=== PATIENT | female | born 1930 | race Caucasian/White ===

== ENCOUNTER → 2016-04-17 | Outpatient (CLI) | payer OTHER ==
[~2016-04-17] MED LIST: ACET-1311 PO; ASPI81TA28 PO; ATEN-174 PO; ATOR-24 PEG; ATOR-54 PO; BISA10SU3 PR; BISA10SU5 PR; CHOL20005 PO; CLEAR LAX PEG; CMD4 PO; DICL1GEL12; ERGO500037 PEG; IMD/2 PO; MCRK/10 PO; MOML PO; MULT-411 PO; PANT40TA PO; POLY150C PEG; POLY150C4 PO; POTA-335 PEG; PRNJ PO; PROT1POW PO; RANI150T3 PO; SACC250C PO; SODIENE PR; TCMD2 PO; XRL10 PO
== END | disposition home or self-care (01) ==
LOC: C.LABCC 08:16
PROVIDERS: ATTEND Internal Medicine
DX: N83.202 Unspecified ovarian cyst, left side (principal)

== ENCOUNTER → 2016-04-18 | Outpatient (CLI) | payer OTHER ==
[2016-04-18 08:43] LABS: PROTHROMBIN TIME (PATIENT) 11.2 SECONDS (9.0-12.0)
== END ==
LOC: C.LABCC 08:04
PROVIDERS: ATTEND Internal Medicine
DX: I48.91 Unspecified atrial fibrillation (principal)

== ENCOUNTER → 2016-04-25 | Outpatient (CLI) | payer OTHER ==
[2016-04-25 09:04] LABS: INR 1.4 (0.9-1.1); PROTHROMBIN TIME (PATIENT) 15.6 SECONDS (9.0-12.0)
== END ==
LOC: C.LABCC 08:28
PROVIDERS: ATTEND Internal Medicine
DX: I48.91 Unspecified atrial fibrillation (principal)

== ENCOUNTER → 2016-05-02 | Outpatient (CLI) | payer OTHER ==
[2016-05-02 08:42] LABS: INR 2.5 (0.9-1.1); PROTHROMBIN TIME (PATIENT) 27.4 SECONDS (9.0-12.0)
== END ==
LOC: C.LABCC 08:10
PROVIDERS: ATTEND Internal Medicine
DX: I48.91 Unspecified atrial fibrillation (principal)

== ENCOUNTER → 2016-05-10 | Outpatient (CLI) | payer OTHER ==
[2016-05-10 10:41] LABS: PROTHROMBIN TIME (PATIENT) 52.9 SECONDS (9.0-12.0)
[2016-05-10 10:45] LABS: INR 4.6 (0.9-1.1)
== END | disposition home or self-care (01) ==
LOC: C.LABCC 09:26
PROVIDERS: ATTEND Internal Medicine
DX: I48.91 Unspecified atrial fibrillation (principal)

== ENCOUNTER → 2016-05-12 | Outpatient (CLI) | payer OTHER ==
[2016-05-12 08:49] LABS: PROTHROMBIN TIME (PATIENT) 58.5 SECONDS (9.0-12.0)
[2016-05-12 09:19] LABS: INR 5.1 (0.9-1.1)
== END ==
LOC: C.LABCC 08:15
PROVIDERS: ATTEND Internal Medicine
DX: I48.91 Unspecified atrial fibrillation (principal)

== ENCOUNTER → 2016-05-14 | Outpatient (CLI) | payer OTHER ==
[2016-05-14 07:46] LABS: INR 2.7 (0.9-1.1); PROTHROMBIN TIME (PATIENT) 30.4 SECONDS (9.0-12.0)
== END ==
LOC: C.LABCC 12:15
PROVIDERS: ATTEND Internal Medicine
DX: I48.91 Unspecified atrial fibrillation (principal)

== ENCOUNTER → 2016-05-22 | Outpatient (CLI) | payer OTHER ==
[2016-05-22 09:37] LABS: INR 1.1 (0.9-1.1); PROTHROMBIN TIME (PATIENT) 11.3 SECONDS (9.0-12.0)
== END ==
LOC: C.LABCC 09:07
PROVIDERS: ATTEND Internal Medicine
DX: I48.91 Unspecified atrial fibrillation (principal)

== ENCOUNTER → 2016-05-29 | Outpatient (CLI) | payer OTHER ==
[2016-05-29 08:49] LABS: PROTHROMBIN TIME (PATIENT) 21.5 SECONDS (9.0-12.0)
== END ==
LOC: C.LABCC 08:16
PROVIDERS: ATTEND Internal Medicine
DX: I48.91 Unspecified atrial fibrillation (principal)

== ENCOUNTER → 2016-06-02 | Outpatient (CLI) | payer OTHER ==
[2016-06-02 08:21] LABS: BASO % 0.6 %; BASO ABS # 0.03 K/uL (0-0.2); COMPLETE YES; EOS % 2.4 %; HEMATOCRIT 34.5 % (37-47); IG% 0.2 %; LYMPH % 21.7 %; LYMPH ABS # 1.07 K/uL (1.2-3.4); MEAN CORPUSCULAR HEMOGLOBIN 29.3 pg (25-34); MEAN CORPUSCULAR HGB CONC 33.3 g/dl (32-36); MEAN PLATELET VOLUME 10.3 fL (7.4-10.4); MONO % 7.9 %; NEUT % 67.2 %; PLATELET COUNT 212 K/uL (130-400); RED BLOOD COUNT 3.92 M/uL (4.2-5.4); WHITE BLOOD COUNT 4.92 K/uL (4.8-10.8)
[2016-06-02 08:30] LABS: ALT/SGPT 22 U/L (12-78); AST/SGOT 19 U/L (15-37); BLOOD UREA NITROGEN 8 mg/dl (7-18); BUN/CREATININE RATIO 10.7 (10-20); CALCIUM 8.4 mg/dl (8.5-10.1); CARBON DIOXIDE 29 mmol/L (21-32); CHLORIDE 97 mmol/L (98-107); CHOLESTEROL 104 mg/dl (0-200); CREATININE 0.76 mg/dl (0.60-1.20); GLUCOSE 96 mg/dl (70-99); POTASSIUM 4.5 mmol/L (3.5-5.1); SODIUM 132 mmol/L (136-145); TRIGLYCERIDES 89 mg/dl (0-150); VERY LOW DENSITY LIPOPROT CALC 18 mg/dl
[2016-06-02 08:33] LABS: ALB/GLOB RATIO 0.9 (0.9-2); ALKALINE PHOSPHATASE 100 U/L (45-117); CHOLESTEROL/HDL RATIO 2.2; HDL CHOLESTEROL 47 mg/dl; LDL CHOLESTEROL CALCULATED 39 mg/dl
[2016-06-02 10:00] LABS: ESTIMATED AVERAGE GLUCOSE 108 mg/dl; HA1C FLAG Normal (Normal)
== END ==
LOC: C.LABCC 08:05
PROVIDERS: ATTEND Internal Medicine
DX: I10 Essential (primary) hypertension (principal); E78.5 Hyperlipidemia, unspecified; R73.01 Impaired fasting glucose

== ENCOUNTER → 2016-06-06 | Outpatient (CLI) | payer OTHER ==
[2016-06-06 08:38] LABS: BLOOD UREA NITROGEN 12 mg/dl (7-18); BUN/CREATININE RATIO 15.3 (10-20); CALCIUM 8.8 mg/dl (8.5-10.1); CARBON DIOXIDE 29 mmol/L (21-32); CHLORIDE 97 mmol/L (98-107); CREATININE 0.81 mg/dl (0.60-1.20); GLUCOSE 96 mg/dl (70-99); POTASSIUM 4.6 mmol/L (3.5-5.1); SODIUM 133 mmol/L (136-145)
[2016-06-06 08:41] LABS: INR 2.5 (0.9-1.1); PROTHROMBIN TIME (PATIENT) 27.6 SECONDS (9.0-12.0)
== END | disposition home or self-care (01) ==
LOC: C.LABCC 08:16
PROVIDERS: ATTEND Internal Medicine
DX: I48.91 Unspecified atrial fibrillation (principal)

== ENCOUNTER → 2016-06-16 | Outpatient (CLI) | payer OTHER ==
[2016-06-16 17:25] LABS: URINE APPEARANCE CLOUDY (CLEAR); URINE BILIRUBIN NEG (NEG); URINE COLOR YELLOW; URINE EPITHELIAL CELL AUTO 0-5 /lpf (0-5); URINE NITRITE POS (NEG); URINE PH 7.5 (4.5-7.5); UROBILINOGEN NEG (NEG)
[2016-06-16 17:39] LABS: MANUAL MICROSCOPIC REQUIRED? NO; REVIEW REQ? NO
== END | disposition home or self-care (01) ==
LOC: C.LABCC 16:38
PROVIDERS: ATTEND Internal Medicine
DX: R41.82 Altered mental status, unspecified (principal)

== ENCOUNTER → 2016-06-21 | Outpatient (CLI) | payer OTHER ==
[2016-06-21 09:40] LABS: PROTHROMBIN TIME (PATIENT) 21.7 SECONDS (9.0-12.0)
[2016-06-21 09:44] LABS: BLOOD UREA NITROGEN 12 mg/dl (7-18); BUN/CREATININE RATIO 14.1 (10-20); CALCIUM 8.6 mg/dl (8.5-10.1); CARBON DIOXIDE 30 mmol/L (21-32); CHLORIDE 98 mmol/L (98-107); CREATININE 0.86 mg/dl (0.60-1.20); GLUCOSE 97 mg/dl (70-99); POTASSIUM 4.3 mmol/L (3.5-5.1); SODIUM 134 mmol/L (136-145)
== END ==
LOC: C.LABCC 08:36
PROVIDERS: ATTEND Internal Medicine
DX: I48.91 Unspecified atrial fibrillation (principal); E87.1 Hypo-osmolality and hyponatremia

== ENCOUNTER → 2016-06-27 | Outpatient (CLI) | payer OTHER ==
[2016-06-27 08:48] LABS: INR 2.2 (0.9-1.1); PROTHROMBIN TIME (PATIENT) 24.4 SECONDS (9.0-12.0)
== END ==
LOC: C.LABCC 08:14
PROVIDERS: ATTEND Internal Medicine
DX: I48.91 Unspecified atrial fibrillation (principal)

== ENCOUNTER → 2016-07-01 | Outpatient (CLI) | payer OTHER ==
--- NOTE | 2016-07-04 11:26 | CODING QUERY NO DIAGNOSIS ---
TREATMENT RENDERED WITHOUT A DIAGNOSIS To promote full compliance with coding requirements relating to patient care, physician participation is requested in all cases of trimmer sorter uncertainty. Please assist us with providing a diagnosis/symptom for the test(s) below: A diagnosis/symptom was not documented on your Order. A valid diagnosis/symptom is required to bill all insurances. Please remember that we are unable to code a diagnosis of rule out, probable, possible, questionable, or suspected. Tests that require a diagnosis: * CDIFF TOXIN B GENE DIAGNOSIS: Provider Signature: Date: Thank you Mia Stockwell [employer] Once completed, please kindly fax back to [phone] For questions please call [phone]
== END ==
LOC: C.LABCC 11:11
PROVIDERS: ATTEND Internal Medicine
DX: R19.7 Diarrhea, unspecified (principal); R19.5 Other fecal abnormalities

== ENCOUNTER → 2016-07-03 | Outpatient (CLI) | payer OTHER ==
[2016-07-03 10:14] LABS: INR 1.9 (0.9-1.1); PROTHROMBIN TIME (PATIENT) 20.8 SECONDS (9.0-12.0)
== END ==
LOC: C.LABCC 09:35
PROVIDERS: ATTEND Internal Medicine
DX: I48.91 Unspecified atrial fibrillation (principal)

== ENCOUNTER → 2016-07-11 | Outpatient (CLI) | payer OTHER ==
[2016-07-11 09:14] LABS: PROTHROMBIN TIME (PATIENT) 42.3 SECONDS (9.0-12.0)
[2016-07-11 09:16] LABS: INR 3.7 (0.9-1.1)
== END ==
LOC: C.LABCC 08:40
PROVIDERS: ATTEND Internal Medicine
DX: I48.91 Unspecified atrial fibrillation (principal)

== ENCOUNTER 2016-07-16 09:11 | Inpatient (IN) | payer OTHER ==
[~2016-07-16] VITALS: Ht 157.5 cm; Wt 81.4 kg
[~2016-07-16 09:11] MED LIST changes: -ACET-1311 PO; -ATOR-54 PO; -BISA10SU3 PR; -CHOL20005 PO; -CMD4 PO; -DICL1GEL12; -IMD/2 PO; -MCRK/10 PO; -MULT-411 PO; -POLY150C4 PO; -PRNJ PO; -PROT1POW PO; -RANI150T3 PO; -SODIENE PR; -TCMD2 PO
[2016-07-16] MEDS ORDERED: SODIUM CHLORIDE 0.9% 1000ML 1,000 ML IV ONE (09:45)
--- NOTE | 2016-07-16 09:54 | EMERGENCY ROOM VISIT NOTE ---
History Report prepared by Veronica: Renard Chaudhry Under the Supervision of: Dr. Tr Ferreira M.D. First contact with patient: 09:36 Chief Complaint: OVERDOSE (ACCIDENTAL) Stated Complaint: OVERDOSE (ACCIDENTAL) Nursing Triage Summary: Pt resident of [facility], found this a.m. by staff with an altered mental status and foaming at the mouth. Pt not acting her normal self per staff. BSG 129 and BP 78/58 for [facility]. On staff questioning the pt, pt told the staff that she got a medicine shot during the night. The patient normally only takes protonix. prehospital BSG 141. [place]on Officer Damon Hilton on scene. It is assumed that she was given the pts roommates meds: BuSpar 10 mg, Norvasc 10 mg, Calcium, Neurontin 300 mg, Hydralazine 50 mg, Levimer 25 units, Imdur 60 mg, Ativan 0.5 mg, Seroquel 25 mg. pt is normally alert. Pt now opens eyes upon calling out her name, pt will answer questions of name and knows she is at the hospital and states Vargas is the President. History of Present Illness The patient is an 85 year old female who presents to the Emergency Room after being found altered and foaming at the mouth in her bed at [facility] prior to arrival at the ED. The patient told the staff this morning that she was given pills and shots last night by a nurse. However, the patient is only supposed to get Protonix. It is assumed that the agency nurse at [facility] gave the patient her roommate's medications which include BuSpar 10 mg, Norvasc 10 mg, Calcium, Neurontin 300 mg, Hydralazine 50 mg, Levimer 25 units, Imdur 60 mg, Ativan 0.5 mg, and Seroquel 25 mg. Per nursing staff, the patient is usually alert and not altered. At [facility], her blood sugar was 129. Upon arrival at the ED, her blood sugar is now 141. The patient's HPI is limited due to AMS. Source of History: patient, fpc notes, nursing staff History Limited By: AMS Onset: prior to arrival Position: other (global) Review of Systems The patient's ROS is limited due to AMS. Past Medical & Surgical Medical Problems: (1) Atrial Fibrillation (2) Cholelithiasis Nos (3) Hyperlipidemia Nec/Nos (4) Hypertension Nos (5) Osteoporosis Nos (6) Overdose Family History Omitted due to advanced age Social History Smoking Status: Never Smoker Drug Use: none Marital Status: Housing Status: fpc Occupation Status: retired Current/Historical Medications Scheduled Aspirin (Aspirin Ec), 81 MG PO DAILY Atenolol (Tenormin), 50 MG PO BID Atorvastatin (Lipitor), 20 MG PO HS Cholecalciferol (Vitamin D3), 2,000 UNITS PO DAILY Magnesium Hydroxide (Milk Of Magnesia), 30 ML PO UD Multiple Vitamin (Daily Rigoberto), 1 TAB PO DAILY Pantoprazole (Protonix), 40 MG PO BID Polysaccharide Iron Complex (Ferrex 150), 150 MG PO DAILY Potassium Chloride (K-Tabs), 20 MEQ PO QAM Protein (Protein), 30 ML PO BID Warfarin Sod (Coumadin), 2 MG PO Q2D Warfarin Sod (Coumadin), 4 MG PO Q2D Scheduled PRN Acetaminophen (Tylenol), 650 MG PO Q8 PRN for Pain Bisacodyl (Dulcolax), 1 SUPP TX for Constipation Loperamide Hcl (Imodium), 2 MG PO for Diarrhea Prune Juice (Prune Juice ), 8 OZ PO for Constipation Ranitidine Hcl (Zantac), 150 MG PO BID PRN for Heartburn Sodium Phosphate/Biphosphate (Fleet Enema), 1 EA TX DAILY PRN for Constipation Miscellaneous Medications Diclofenac Sodium (Topical) (Voltaren 1% Top Gel) Allergies Coded Allergies: Morphine (Verified Allergy, Unknown, 07/16/16) Sulfa Antibiotics (Verified Allergy, Unknown, UNKNOWN, 07/16/16) Physical Exam Vital Signs Date Time Temp Pulse Resp B/P Pulse Ox O2 Delivery O2 Flow Rate FiO2 07/16/16 12:10 67 18 103/60 94 Room Air 07/16/16 11:08 65 14 102/55 95 07/16/16 10:30 72 18 106/43 94 Room Air 07/16/16 10:20 93 Room Air 07/16/16 10:09 67 16 93/54 94 Room Air 07/16/16 09:53 68 18 82/47 92 Room Air 07/16/16 09:41 64 07/16/16 09:18 36.4 79 18 107/53 94 Room Air Physical Exam GENERAL: Patient was asleep on my arrival, but was able to answer some questions. Appears confused and disoriented. SKIN: No erythema, pallor, cyanosis or rash HEENT: Normal head, pupils equal, reactive to light and accommodation. Oral cavity and posterior pharynx appear normal. Neck: Without adenopathy, no neck vein distention. LUNGS: Clear to auscultation. No wheezes, no rales, no rhonchi. HEART: No murmurs. No gallops. No rubs ABDOMEN: No masses, no rebound, no hepatomegaly or splenomegaly. EXTREMITIES: No signs of trauma. No pedal or pretibial edema. No calf or thigh tenderness. NEUROLOGIC: Cranial nerves II-XII within normal limits. No gross motor sensory function deficits. Medical Decision & Procedures ER Provider Diagnostic Interpretation: X ray results are stated below per my interpretation and the radiologist's interpretation. CHEST ONE VIEW PORTABLE CLINICAL HISTORY: Overdose. COMPARISON STUDY: Chest radiograph September 28, 2014. FINDINGS: Moderate cardiomegaly is unchanged. There is no pneumothorax or pleural effusion. Blunting of left costophrenic angle is likely due to atelectasis or epicardial fat pad. There is extensive mitral annular calcification. There is no evidence of pulmonary edema. No consolidation is identified. Old deformity of the right upper chest wall and right clavicle is noted. IMPRESSION: No acute cardiopulmonary findings. No change in appearance of the chest. Electronically signed by: Catarino Butler M.D. 07/16/2016 10:13 AM Dictated Date/Time: 07/16/2016 10:11 AM Laboratory Results 07/16/16 09:30 Red Blood Count 4.01, Mean Corpuscular Volume 87.8, Mean Corpuscular Hemoglobin 29.4, Mean Corpuscular Hemoglobin Concent 33.5, Mean Platelet Volume 9.6, Neutrophils (%) (Auto) 75.9, Lymphocytes (%) (Auto) 18.0, Monocytes (%) (Auto) 4.9, Eosinophils (%) (Auto) 0.8, Basophils (%) (Auto) 0.2, Neutrophils # (Auto) 7.29, Lymphocytes # (Auto) 1.73, Monocytes # (Auto) 0.47, Eosinophils # (Auto) 0.08, Basophils # (Auto) 0.02 07/16/16 09:30 Test 07/16/16 09:30 4/9/17 10:05 07/16/16 10:30 White Blood Count 9.61 K/uL (4.8-10.8) Red Blood Count 4.01 M/uL (4.2-5.4) Hemoglobin 11.8 g/dL (12.0-16.0) Hematocrit 35.2 % (37-47) Mean Corpuscular Volume 87.8 fL (80-100) Mean Corpuscular Hemoglobin 29.4 pg (25-34) Mean Corpuscular Hemoglobin Concent 33.5 g/dl (32-36) Platelet Count 291 K/uL (130-400) Mean Platelet Volume 9.6 fL (7.4-10.4) Neutrophils (%) (Auto) 75.9 % Lymphocytes (%) (Auto) 18.0 % Monocytes (%) (Auto) 4.9 % Eosinophils (%) (Auto) 0.8 % Basophils (%) (Auto) 0.2 % Neutrophils # (Auto) 7.29 K/uL (1.4-6.5) Lymphocytes # (Auto) 1.73 K/uL (1.2-3.4) Monocytes # (Auto) 0.47 K/uL (0.11-0.59) Eosinophils # (Auto) 0.08 K/uL (0-0.5) Basophils # (Auto) 0.02 K/uL (0-0.2) RDW Standard Deviation 42.9 fL (36.4-46.3) RDW Coefficient of Variation 13.5 % (11.5-14.5) Immature Granulocyte % (Auto) 0.2 % Immature Granulocyte # (Auto) 0.02 K/uL (0.00-0.02) Prothrombin Time 15.0 SECONDS (9.0-12.0) Prothromb Time International Ratio 1.4 (0.9-1.1) Activated Partial Thromboplast Time 28.7 SECONDS (21.0-31.0) Partial Thromboplastin Ratio 1.1 Anion Gap 10.0 mmol/L (3-11) Estimated GFR () 65.0 Estimated GFR (Non- 56.0 BUN/Creatinine Ratio 16.3 (10-20) Calcium Level 8.7 mg/dl (8.5-10.1) Total Bilirubin 0.8 mg/dl (0.2-1) Aspartate Amino Transf (AST/SGOT) 25 U/L (15-37) Alanine Aminotransferase (ALT/SGPT) 53 U/L (12-78) Alkaline Phosphatase 187 U/L (45-117) Troponin I < 0.015 ng/ml (0-0.045) Total Protein 6.7 gm/dl (6.4-8.2) Albumin 2.9 gm/dl (3.4-5.0) Globulin 3.8 gm/dl (2.5-4.0) Albumin/Globulin Ratio 0.8 (0.9-2) Lactic Acid Level 1.5 mmol/L (0.4-2.0) Urine Color YELLOW Urine Appearance CLEAR (CLEAR) Urine pH 7.5 (4.5-7.5) Urine Specific Cosby 1.010 (1.000-1.030) Urine Protein NEG (NEG) Urine Glucose (UA) NEG (NEG) Urine Ketones NEG (NEG) Urine Occult Blood NEG (NEG) Urine Nitrite NEG (NEG) Urine Bilirubin NEG (NEG) Urine Urobilinogen NEG (NEG) Urine Leukocyte Esterase NEG (NEG) Urine Opiates Screen NEG (NEG) Urine Methadone, Qualitative NEG (NEG) Urine Barbiturates NEG (NEG) Urine Phencyclidine (PCP) Level NEG (NEG) Ur Amphetamine/Methamphetamine NEG (NEG) MDMA (Ecstasy) Screen NEG (NEG) Urine Benzodiazepines Screen NEG (NEG) Urine Cocaine Metabolite NEG (NEG) Urine Marijuana (THC) NEG (NEG) Laboratory results as stated above per my review. Medications Administered Medications (Trade) Dose Ordered Sig/Edi Route Start Time Stop Time Status Last Admin Dose Admin Sodium Chloride 1,000 ml @ 1,000 mls/hr Q1H ONCE IV 07/16/16 09:45 07/16/16 10:44 DC 07/16/16 09:52 1,000 MLS/HR Dextrose/Sodium Chloride (D5W And 1/2nss) 1,000 ml @ 75 mls/hr [id number] IV 07/16/16 12:15 07/17/16 01:34 07/16/16 14:03 75 MLS/HR ECG Indication: altered mental status Rate (beats per minute): 74 Rhythm: atrial fibrillation Findings: nonspecific-ST abn, PVC (occasional), other (LVH) Change: no significant change (when compared to EKG from September 28, 2014. ) ED Course 0941: Past medical records reviewed. The patient was evaluated in room A3. A complete history and physical examination was performed. 0945: Ordered NSS 1000 ml @ 1000 mls/hr IV. 1104: At this time, I reevaluated the patient and she was feeling much better. I discussed findings with the patient and the patient's daughter. 1152: At this time, I discussed the patient's case with Dr. Maxi MEDINA and he agreed to accept the patient for further evaluation. Medical Decision Differential diagnoses include accidental overdose, hypoglycemia, hypotension, or metabolic disorder. The patient apparently received multiple different medications that were not prescribed to her this morning. Multiple labs, urinalysis, EKG and imaging were obtained. Please see above. Patient's mental status improved markedly while here in the ED but despite that and because of the significant medications I do believe she should be monitored in the hospital. I discussed this with family members and with the hospitalist. Consults Time Called: [phone] Consulting Physician: Dr. Maxi MARTI Returned Call: [phone] At this time, I discussed the patient's case with Dr. Maxi MEDINA and he agreed to accept the patient for further evaluation. Impression Primary Impression: Multiple drug overdose Scribe Attestation The scribe's documentation has been prepared under my direction and personally reviewed by me in its entirety. I confirm that the note above accurately reflects all work, treatment, procedures, and medical decision making performed by me. Departure Information Dispostion Being Evaluated By Hospitalist Referrals WoodbineEllen (PCP)
[2016-07-16 10:03] LABS: BASO % 0.2 %; BASO ABS # 0.02 K/uL (0-0.2); COMPLETE YES; EOS % 0.8 %; HEMATOCRIT 35.2 % (37-47); IG% 0.2 %; LYMPH ABS # 1.73 K/uL (1.2-3.4); MEAN CELL VOLUME 87.8 fL (80-100); MEAN CORPUSCULAR HEMOGLOBIN 29.4 pg (25-34); MEAN CORPUSCULAR HGB CONC 33.5 g/dl (32-36); MEAN PLATELET VOLUME 9.6 fL (7.4-10.4); MONO % 4.9 %; NEUT % 75.9 %; PLATELET COUNT 291 K/uL (130-400); RED BLOOD COUNT 4.01 M/uL (4.2-5.4); WHITE BLOOD COUNT 9.61 K/uL (4.8-10.8)
[2016-07-16 10:11] LABS: ALT/SGPT 53 U/L (12-78); BLOOD UREA NITROGEN 15 mg/dl (7-18); BUN/CREATININE RATIO 16.3 (10-20); CALCIUM 8.7 mg/dl (8.5-10.1); CARBON DIOXIDE 30 mmol/L (21-32); CHLORIDE 97 mmol/L (98-107); CREATININE 0.93 mg/dl (0.60-1.20); GLUCOSE 135 mg/dl (70-99); POTASSIUM 4.2 mmol/L (3.5-5.1); SODIUM 137 mmol/L (136-145)
[2016-07-16 10:15] LABS: ALB/GLOB RATIO 0.8 (0.9-2); ALKALINE PHOSPHATASE 187 U/L (45-117); AST/SGOT 25 U/L (15-37)
--- NOTE | 2016-07-16 10:15 | DIAGNOSTIC IMAGING REPORT ---
CHEST ONE VIEW PORTABLE CLINICAL HISTORY: Overdose. COMPARISON STUDY: Chest radiograph September 28, 2014. FINDINGS: Moderate cardiomegaly is unchanged. There is no pneumothorax or pleural effusion. Blunting of left costophrenic angle is likely due to atelectasis or epicardial fat pad. There is extensive mitral annular calcification. There is no evidence of pulmonary edema. No consolidation is identified. Old deformity of the right upper chest wall and right clavicle is noted. IMPRESSION: No acute cardiopulmonary findings. No change in appearance of the chest. Electronically signed by: Catarino Butler M.D. 07/16/2016 10:13 AM Dictated Date/Time: 07/16/2016 10:11 AM
[2016-07-16 10:18] LABS: INR 1.4 (0.9-1.1); PARTIAL THROMBOPLASTIN RATIO 1.1
[2016-07-16] MEDS ORDERED: ATOR-54 PO (10:25)
[2016-07-16] MEDS ORDERED: MCRK/10 PO (10:25)
[2016-07-16] MEDS ORDERED: PRNJ PO (10:25)
[2016-07-16] MEDS ORDERED: MULT-411 PO (10:25)
[2016-07-16] MEDS ORDERED: SODIENE PR (10:25)
[2016-07-16] MEDS ORDERED: POLY150C4 PO (10:25)
[2016-07-16] MEDS ORDERED: PROT1POW PO (10:25)
[2016-07-16] MEDS ORDERED: ACET-1311 PO (10:25)
[2016-07-16] MEDS ORDERED: BISA10SU3 PR (10:25)
[2016-07-16] MEDS ORDERED: DICL1GEL12 (10:25)
[2016-07-16] MEDS ORDERED: CHOL20005 PO (10:25)
[2016-07-16] MEDS ORDERED: IMD/2 PO (10:26)
[2016-07-16] MEDS ORDERED: RANI150T3 PO (10:26)
[2016-07-16] MEDS ORDERED: CMD4 PO (10:28)
[2016-07-16] MEDS ORDERED: TCMD2 PO (10:28)
[2016-07-16 10:59] LABS: URINE APPEARANCE CLEAR (CLEAR); URINE BILIRUBIN NEG (NEG); URINE COLOR YELLOW; URINE NITRITE NEG (NEG); URINE PH 7.5 (4.5-7.5); UROBILINOGEN NEG (NEG); ZZURINE CULT IF INDIC CATH NO
[2016-07-16 11:01] LABS: MANUAL MICROSCOPIC REQUIRED? NO; REVIEW REQ? NO
[2016-07-16 11:36] LABS: BENZODIAZEPINE, URINE NEG (NEG); COCAINE,URINE NEG (NEG); PHENCYCLIDINE, URINE NEG (NEG)
[2016-07-16] MEDS ORDERED: METOPROLOL TARTRATE 1 MG/ML VIAL IV PRN (12:15)
[2016-07-16] MEDS ORDERED: D5NSS + 20MEQ KCL 1,000 ML IV SCH (12:15)
[2016-07-16] MEDS ORDERED: ONDANSETRON INJ 2 MG/ML 2 ML VIAL IV PRN (12:15)
[2016-07-16] MEDS ORDERED: ALUMINUM/MAGNESIUM/SIMETH (MAALOX MAX) 30 ML UDC PO PRN (12:15)
[2016-07-16] MEDS ORDERED: ACETAMINOPHEN 325 MG TAB PO PRN (12:15)
[2016-07-16] MEDS ORDERED: D5W AND 1/2NSS 1,000 ML IV SCH (12:15)
[2016-07-16 12:54] VITALS: Ht 157.5 cm; Wt 81.4 kg
[2016-07-16 13:15] VITALS: BP 150/84; PULSE 71; TEMP 36.8; O2SAT 94
[2016-07-16 14:59] VITALS: BP 143/88; PULSE 65; TEMP 36.9; O2SAT 95
[2016-07-16] MEDS ORDERED: IV FLUIDS COMPLETED PRN (15:15)
[2016-07-16] MEDS: WARFARIN SOD 2 MG TAB PO SCH (15:55)
--- NOTE | 2016-07-16 17:36 | HISTORY & PHYSICAL EXAMINATION ---
DATE OF ADMISSION: 07/16/2016 CHIEF COMPLAINT: Accidental overdose. ADMITTING DIAGNOSIS: Same. HISTORY OF PRESENT ILLNESS: Ms. Sampson was brought to the Emergency Department for evaluation after the staff of [facility] discovered that the patient received medications that were not hers. Both the medications given include BuSpar 10, Norvasc 10, calcium, Neurontin 300, hydralazine 50, Levemir 25 units subQ, Imdur 60, Ativan 0.5 and Seroquel 25. The patient typically would get only Protonix and there is a listing of metoprolol on her med reconciliation along with Coumadin in the evening. Initially, the patient was confused. She does have some expressive aphasia from her previous stroke; however, she is able to be conversant with me. Her blood sugar has been maintained despite giving the Levemir and her blood pressure was slightly low on presentation. Her EKG showed her to be in atrial fibrillation with controlled ventricular rate. Her family is at the bedside and understanding the reason for observation. PAST MEDICAL HISTORY: Atrial fibrillation, cholelithiasis, dyslipidemia, hypertension, osteoporosis, previous CVA, previous need for cardioversion, previous DVT, diverticulosis, Zenker's diverticulum, previous PEG tube, rotator cuff repair, basal cell carcinoma of the scalp, radiation therapy to the scalp, small bowel resection secondary to perforation and a history of MRSA. SOCIAL HISTORY: The patient does not smoke or drink. FAMILY HISTORY: Unremarkable at this time. The patient cannot supply it. REVIEW OF SYSTEMS: The patient states she feels normal self. She is a little hungry and dry mouth. Otherwise, 10 systems were reviewed and are negative. PHYSICAL EXAMINATION: VITAL SIGNS: The patient's temperature is 36.4, her pulses are 65, respiration rate 14, BP 102/55, and O2 sat 95% on room air. HEENT: PERRL, EOMI. Oropharynx, dry mucous membranes. Gag reflex present. NECK: Without lymphadenopathy. Trachea is midline. HEART: Irregularly irregular. There is a systolic murmur heard at her left upper sternal border. LUNGS: Clear with good effort. ABDOMEN: Normoactive bowel sounds. Soft, nontender, and nondistended. EXTREMITIES: Without edema or cyanosis. NEUROLOGIC: She is awake. She has mostly fluent speech. Sometimes, she gets stuck when trying to bring the word out or 2, but for the most part, she has fairly fluent speech. Cranial nerves are intact. She can move extremities. They are 4.5/5 and equal bilaterally strength, upper and lower extremities. LABORATORY DATA: She has an EKG, showing atrial fibrillation with controlled ventricular rate. White count of 9, H\T\H 11 and 35, and platelet count 291. BUN and creatinine are 15 and 0.9. Glucoses are 151, 135 and 129. Troponin is unremarkable. Coags with an INR of 1.4. Urinalysis unremarkable. Tox screen negative. A chest x-ray was performed, showing no acute cardiopulmonary findings. ASSESSMENT: Unintentional overdose in an 85-year-old female. PLAN: The patient will be brought in to our telemetry unit for close monitoring given her atrial fibrillation. In the fact that she has had medication that dropped her blood pressure leads me to her Tenormin medication, which she usually takes. We will restart this in the evening at a much lower dose. For the administration of insulin, she will put on D5 half normal saline at 75 an hour for 1 liter with monitoring of her glucoses q.a.c. and at bedtime. We will maintain her warfarin therapy as mentioned 2 alternating with 4. Remainder of her other medications will be held with the exception of p.r.n. Tylenol, milk of magnesia and will give her pantoprazole. MEDICATION LIST: Tylenol as needed for pain, aspirin 81 a day, Tenormin 50 b.i.d., atorvastatin 20 a day, bisacodyl p.r.n., Voltaren topical gel p.r.n., Imodium p.r.n., milk of mag p.r.n., Multivite once a day, iron 150 a day, Zantac 150 b.i.d. p.r.n. heartburn, Fleets enema as needed, vitamin D3 at 2000 units a day, potassium 20 mEq a day, and protein 30 mL a day and prune juice. The patient is a full code. DVT prevention is early ambulation. MTDD
[2016-07-16 19:35] VITALS: BP 127/61; PULSE 64; TEMP 36.4; O2SAT 95
[2016-07-16] MEDS: PANTOprazole SOD 40 MG TAB PO SCH (19:55)
[2016-07-16] MEDS ORDERED: METOPROLOL TARTRATE 25 MG TAB PO SCH (21:00)
[2016-07-16 23:42] VITALS: BP 135/78; PULSE 63; TEMP 36.7; O2SAT 96
[2016-07-17] VITALS (7 sets, daily range): BP systolic 148–171; BP diastolic 58–98; PULSE 57–72; TEMP 36.4–36.8; O2SAT 91–97
[2016-07-17] MEDS: PANTOprazole SOD 40 MG TAB PO SCH ×2 (07:47→21:25)
[2016-07-17 07:49] LABS: INR 1.4 (0.9-1.1); PROTHROMBIN TIME (PATIENT) 15.2 SECONDS (9.0-12.0)
[2016-07-17 07:58] LABS: HEMATOCRIT 34.4 % (37-47); MEAN CELL VOLUME 87.3 fL (80-100); MEAN CORPUSCULAR HEMOGLOBIN 28.9 pg (25-34); MEAN CORPUSCULAR HGB CONC 33.1 g/dl (32-36); MEAN PLATELET VOLUME 9.7 fL (7.4-10.4); PLATELET COUNT 251 K/uL (130-400); RED BLOOD COUNT 3.94 M/uL (4.2-5.4); WHITE BLOOD COUNT 8.12 K/uL (4.8-10.8)
[2016-07-17 08:10] LABS: BUN/CREATININE RATIO 14.3 (10-20); CALCIUM 8.9 mg/dl (8.5-10.1); CREATININE 0.77 mg/dl (0.60-1.20); POTASSIUM 4.6 mmol/L (3.5-5.1)
--- NOTE | 2016-07-17 10:22 | Progress Note ---
Subjective Date of Service: Jul 17, 2016. Subjective Pt evaluation today including: conversation w/ patient, conversation w/ family , physical exam, chart review, lab review, review of studies, conversation w/ portrait consultant, review of inpatient medication list Voiding: no voiding problems Patient reported doing okay, awake alert and orientated, conversational, reports generalized weakness, daughter reported lower back wounds Problem List Medical Problems: (1) Multiple drug overdose Status: Acute Review of Systems Constitutional: + fatigue, No chills, No fever, No problem reported, No sweats , No weakness, No weight loss Eyes: No diplopia, No discharge, No eye pain, No redness, No worsening of vision ENT: No dental problems, No hearing loss, No nasal symptoms, No sore throat, No tinnitus, No trouble swallowing, No unusual epistaxis Respiratory: No cough, No dyspnea at rest, No dyspnea on exertion, No hemoptysis, No shortness of breath, No sputum, No wheezing Cardiac: No PND, No chest pain, No claudication, No edema, No orthopnea, No palpitations Abdomen: No constipation, No diarrhea, No nausea, No pain, No vomiting Musculoskeletal: No calf pain, No joint pain, No muscle pain, No swelling Female : No abnormal vaginal bleeding, No dysuria, No hematuria, No incontinence, No urinary frequency, No vaginal discharge Neurologic: No balance problems, No memory loss, No numbness/tingling, No paralysis, No vertigo, No weakness Psychiatric: No anhedonism, No anxiety, No depression symptoms, No insomnia, No substance abuse Heme: No abnormal bleeding/bruising, No clotting problems, No night sweats, No swollen lymph nodes Endo: No excessive thirst, No excessive urination, No fatigue Skin: No bleeding, No color change, No itch, No new/changing skin lesions, No rash Objective Vital Signs Date Time Temp Pulse Resp B/P Pulse Ox O2 Delivery O2 Flow Rate FiO2 07/17/16 08:00 Room Air 07/17/16 07:48 72 19 167/91 97 Room Air 07/17/16 03:40 36.6 68 17 156/82 96 Room Air 07/16/16 23:42 36.7 63 17 135/78 96 Room Air 07/16/16 20:52 Room Air 07/16/16 19:35 36.4 64 14 127/61 95 Room Air 07/16/16 14:59 36.9 65 15 143/88 95 Room Air 07/16/16 13:15 36.8 71 20 150/84 94 Room Air 07/16/16 12:56 71 14 106/63 93 07/16/16 12:54 Room Air 07/16/16 12:30 118/65 07/16/16 12:10 67 18 103/60 94 Room Air 07/16/16 11:08 65 14 102/55 95 07/16/16 10:30 72 18 106/43 94 Room Air 07/16/16 10:20 93 Room Air Physical Exam General Appearance: WD/WN, no apparent distress, + obese, + pertinent finding ( frail looking) Eyes: normal inspection, PERRL, EOMI, sclerae normal ENT: normal ENT inspection, hearing grossly normal, pharynx normal Neck: supple, no adenopathy, thyroid normal, no JVD, no carotid bruits, trachea midline Respiratory/Chest: chest non-tender, lungs clear, normal breath sounds, no respiratory distress, no accessory muscle use, + decreased breath sounds Cardiovascular: regular rate, rhythm, no edema, no gallop, no JVD, no murmur Abdomen: normal bowel sounds, non tender, soft, no organomegaly, no pulsatile mass Extremities: normal range of motion, non-tender, normal inspection, no pedal edema, no calf tenderness, normal capillary refill, pelvis stable Neurologic/Psychiatric: automotive services manager II-XII nml as tested, no motor/sensory deficits, alert, normal mood/affect, oriented x 3 Skin: normal color, warm/dry, no rash, + pertinent finding (posterior lower back has open wounds per nurse which is not new) Lymphatic: no adenopathy Laboratory Results Last 24 Hours Test 07/16/16 10:30 07/16/16 11:07 07/16/16 12:09 07/16/16 13:25 Urine Color YELLOW Urine Appearance CLEAR Urine pH 7.5 Urine Specific Arp 1.010 Urine Protein NEG Urine Glucose (UA) NEG Urine Ketones NEG Urine Occult Blood NEG Urine Nitrite NEG Urine Bilirubin NEG Urine Urobilinogen NEG Urine Leukocyte Esterase NEG Urine Opiates Screen NEG Urine Methadone, Qualitative NEG Urine Barbiturates NEG Urine Phencyclidine (PCP) Level NEG Ur Amphetamine/Methamphetamine NEG MDMA (Ecstasy) Screen NEG Urine Benzodiazepines Screen NEG Urine Cocaine Metabolite NEG Urine Marijuana (THC) NEG Bedside Glucose 129 mg/dl 127 mg/dl 110 mg/dl Test 07/16/16 16:10 07/16/16 20:17 07/17/16 06:20 07/17/16 07:04 Bedside Glucose 180 mg/dl 143 mg/dl 84 mg/dl White Blood Count 8.12 K/uL Red Blood Count 3.94 M/uL Hemoglobin 11.4 g/dL Hematocrit 34.4 % Mean Corpuscular Volume 87.3 fL Mean Corpuscular Hemoglobin 28.9 pg Mean Corpuscular Hemoglobin Concent 33.1 g/dl RDW Standard Deviation 42.7 fL RDW Coefficient of Variation 13.4 % Platelet Count 251 K/uL Mean Platelet Volume 9.7 fL Prothrombin Time 15.2 SECONDS Prothromb Time International Ratio 1.4 Sodium Level 139 mmol/L Potassium Level 4.6 mmol/L Chloride Level 104 mmol/L Carbon Dioxide Level 30 mmol/L Anion Gap 5.0 mmol/L Blood Urea Nitrogen 11 mg/dl Creatinine 0.77 mg/dl Est Creatinine Clear Calc Drug Dose 52.7 ml/min Estimated GFR () 81.6 Estimated GFR (Non- 70.4 BUN/Creatinine Ratio 14.3 Random Glucose 77 mg/dl Calcium Level 8.9 mg/dl Assessment and Plan 85-year-old female admitted on 07/16/2016 because of Unintentional overdose Per report patient patient was given medicine by error in assisted Unintentional overdose : Stable vital sign For the administration of insulin, patient has been on D5 half normal saline at 75 an hour for 1 liter with monitoring of her glucoses Glucose has been good, patient stopped eating, DC IV fluid History of A. fib, cardiac monitor not remarkable, On Coumadin, INR is subset therapeutic, we'll continue current dose of warfarin therapy Lower posterior back open wounds prior to admission, CONSULT wound care Discussed with patient and daughter, daughter request PT OT and rehabilitation if patient needed to, otherwise was sent back to senior care facility in [facility] MEDICATION LIST prior to admission: Tylenol as needed for pain, aspirin 81 a day, Tenormin 50 b.i.d., atorvastatin 20 a day, bisacodyl p.r.n., Voltaren topical gel p.r.n., Imodium p.r.n., milk of mag p.r.n., Multivite once a day, iron 150 a day, Zantac 150 b.i.d. p.r.n. heartburn, Fleets enema as needed, vitamin D3 at 2000 units a day, potassium 20 mEq a day, and protein 30 mL a day and prune juice. full code. DVT prevention is covered by Coumadin Looking for discharge tomorrow Continued [facility] stay due to: multiple IV medications needed Discharge planning: home
[2016-07-17] MEDS: WARFARIN SOD 4 MG TAB PO SCH (15:02)
[2016-07-18] VITALS (7 sets, daily range): BP systolic 136–180; BP diastolic 58–88; PULSE 68–80; TEMP 36.3–36.8; O2SAT 95–97
[2016-07-18 06:02] LABS: INR 1.4 (0.9-1.1); PROTHROMBIN TIME (PATIENT) 15.1 SECONDS (9.0-12.0)
[2016-07-18] MEDS: PANTOprazole SOD 40 MG TAB PO SCH ×2 (07:37→20:18)
--- NOTE | 2016-07-18 07:45 | Clinical Documentation Query ---
CLINICAL DOCUMENTATION QUERY 85 year old female who presents to the Emergency Room after being found altered and foaming at the mouth in her bed at [facility]. Query #1/2 In your clinical opinion is this patient being managed for: ( x ) possible Toxic encephalopathy in setting of Polydrug accidental poisoning/overdose. ( ) Other explanation of clinical findings (Please Explain) ( ) Unable to determine (Please Define) ( ) Need to Discuss ( ) Not Agree The medical record reflects the following clinical findings, treatment, and risk factors. Clinical Indicators: Reports of this patient allegedly getting roommates medication. Found with altered mental status and foaming at the mouth. ED assessment revealed the patient was able to answer some questions but appears confused and disoriented. Treatment: Admission to telemetry, telemetry, D5NSS, antihypertensive medication held, beta dottie held Risk Factors: Age, patient allegedly receiving wrong medications. Query #2/2 07/17 progress noted describes patient as having posterior lower back would POA. WOCN consult describes patient has having a stage 2 pressure ulcer to right buttocks. In your clinical opinion is this patient being managed for: ( x ) Pressure ulcer of right buttock, stage 2 POA ( ) Other explanation of clinical findings (Please Explain) ( ) Unable to determine (Please Define) ( ) Need to Discuss ( ) Not Agree The medical record reflects the following clinical findings, treatment, and risk factors. Clinical Indicators: As above. Treatment: WOCN consult, q2h repositioning and skin care Risk Factors: Age Please clarify and document your clinical opinion in the progress notes and discharge summary. Terms such as "probable", "suspected", "likely", "questionable", "possible", or "still to be ruled out" are acceptable. IF IN AGREEMENT, YOU MUST DOCUMENT ABOVE DIAGNOSTIC STATEMENT IN DAILY PROGRESS NOTES AND DISCHARGE SUMMARY. This document is not part of the patient's record. Thank You, Christopher Villalobos, RN [phone]
[2016-07-18] MEDS: ASPIRIN 81 MG ECTAB PO SCH (08:40)
--- NOTE | 2016-07-18 08:56 | Progress Note ---
Subjective Date of Service: Jul 18, 2016. Subjective Pt evaluation today including: conversation w/ patient, conversation w/ family , physical exam, chart review, lab review, review of studies, conversation w/ clinical education consultant, review of inpatient medication list Nurse reported patient has 8 beats of V. tach last p.m. when patient was sleeping she was asymptomatic, only one episodes This morning patient is pleasant and conversational, no complaint Problem List Medical Problems: (1) Multiple drug overdose Status: Acute Review of Systems Constitutional: No chills, No fatigue, No fever, No problem reported, No sweats , No weakness, No weight loss Eyes: No diplopia, No discharge, No eye pain, No redness, No worsening of vision ENT: No dental problems, No hearing loss, No nasal symptoms, No sore throat, No tinnitus, No trouble swallowing, No unusual epistaxis Respiratory: No cough, No dyspnea at rest, No dyspnea on exertion, No hemoptysis, No shortness of breath, No sputum, No wheezing Cardiac: No PND, No chest pain, No claudication, No edema, No orthopnea, No palpitations Abdomen: No constipation, No diarrhea, No nausea, No pain, No vomiting Musculoskeletal: No calf pain, No joint pain, No muscle pain, No swelling Female : No abnormal vaginal bleeding, No dysuria, No hematuria, No incontinence, No urinary frequency, No vaginal discharge Neurologic: No balance problems, No memory loss, No numbness/tingling, No paralysis, No vertigo, No weakness Psychiatric: No anhedonism, No anxiety, No depression symptoms, No insomnia, No substance abuse Heme: No abnormal bleeding/bruising, No clotting problems, No night sweats, No swollen lymph nodes Endo: No excessive thirst, No excessive urination, No fatigue Skin: No bleeding, No color change, No itch, No new/changing skin lesions, No rash Objective Vital Signs Date Time Temp Pulse Resp B/P Pulse Ox O2 Delivery O2 Flow Rate FiO2 07/18/16 07:43 36.7 74 19 180/88 95 Room Air 07/18/16 04:00 Room Air 07/18/16 03:24 36.8 68 18 150/80 96 Room Air 07/17/16 23:59 Room Air 07/17/16 23:45 36.7 64 18 158/85 94 Room Air 07/17/16 20:00 Room Air 07/17/16 19:35 36.7 57 14 148/97 91 Room Air 07/17/16 16:00 Room Air 07/17/16 15:42 171/98 07/17/16 15:38 36.8 65 17 161/88 96 Room Air 07/17/16 12:00 Room Air 07/17/16 11:56 36.4 68 18 151/76 96 Room Air Physical Exam General Appearance: WD/WN, no apparent distress, + pertinent finding (frail) Eyes: normal inspection, PERRL, EOMI, sclerae normal ENT: normal ENT inspection, hearing grossly normal, pharynx normal Neck: supple, no adenopathy, thyroid normal, no JVD, no carotid bruits, trachea midline Respiratory/Chest: chest non-tender, normal breath sounds, no respiratory distress, no accessory muscle use, + decreased breath sounds Cardiovascular: regular rate, rhythm, no edema, no gallop, no JVD, no murmur Abdomen: normal bowel sounds, non tender, soft, no organomegaly, no pulsatile mass Extremities: normal range of motion, non-tender, normal inspection, no pedal edema, no calf tenderness, normal capillary refill, pelvis stable Neurologic/Psychiatric: 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, no motor/sensory deficits, alert, normal mood/affect, oriented x 3 Skin: normal color, warm/dry, no rash, + pertinent finding (in the lower back has decubitus prior to admission) Lymphatic: no adenopathy Laboratory Results Last 24 Hours Test 07/18/16 05:39 07/18/16 06:31 Prothrombin Time 15.1 SECONDS Prothromb Time International Ratio 1.4 Bedside Glucose 93 mg/dl Assessment and Plan 85-year-old female admitted on 07/16/2016 because of Unintentional overdose Per report patient patient was given medicine by error in jail possible Toxic encephalopathy in setting of Polydrug accidental poisoning/ overdose. Unintentional overdose : Stable vital sign, episode of NSVT with History of A. fib, cont radiation monitor Resume home dose of Tenormin Continue telemetry Check phosphorylase and magnesium On Coumadin for stroke prevention, INR is subset therapeutic, we'll continue current dose of warfarin therapy For the administration of insulin prior to admission, patient has been on D5 half normal saline at 75 an hour for 1 liter with monitoring of her glucoses Glucose has been good, patient stopped eating, DC IV fluid Pressure ulcer of right buttock, stage 2 POA with Lower posterior back open wounds prior to admission, CONSULT wound care Discussed with patient and daughter, daughter request PT OT and rehabilitation if patient needed to, otherwise was sent back to shelter facility in [facility], possible not able to tolerate extensive rehabilitation, will convince to go back to jail tomorrow MEDICATION LIST prior to admission: Tylenol as needed for pain, aspirin 81 a day, Tenormin 50 b.i.d., atorvastatin 20 a day, bisacodyl p.r.n., Voltaren topical gel p.r.n., Imodium p.r.n., milk of mag p.r.n., Multivite once a day, iron 150 a day, Zantac 150 b.i.d. p.r.n. heartburn, Fleets enema as needed, vitamin D3 at 2000 units a day, potassium 20 mEq a day, and protein 30 mL a day and prune juice. full code. DVT prevention is covered by Coumadin Looking for discharge tomorrow Continued [facility] stay due to: home environment unsafe for pt Discharge planning: home
[2016-07-18] MEDS: WARFARIN SOD 2 MG TAB PO SCH (15:39)
[2016-07-18] MEDS: ATORVASTATIN 20 MG TAB PO SCH (20:18)
[2016-07-19] VITALS (10 sets, daily range): BP systolic 133–171; BP diastolic 63–100; PULSE 62–74; TEMP 36.3–36.9; O2SAT 92–98
[2016-07-19 07:34] LABS: HEMATOCRIT 36.3 % (37-47); MEAN CELL VOLUME 89.4 fL (80-100); MEAN CORPUSCULAR HEMOGLOBIN 29.3 pg (25-34); MEAN CORPUSCULAR HGB CONC 32.8 g/dl (32-36); PLATELET COUNT 281 K/uL (130-400); RED BLOOD COUNT 4.06 M/uL (4.2-5.4); WHITE BLOOD COUNT 8.35 K/uL (4.8-10.8)
[2016-07-19 07:46] LABS: INR 1.5 (0.9-1.1); PROTHROMBIN TIME (PATIENT) 15.9 SECONDS (9.0-12.0)
[2016-07-19 07:53] LABS: BUN/CREATININE RATIO 12.5 (10-20); CALCIUM 8.7 mg/dl (8.5-10.1); CREATININE 0.82 mg/dl (0.60-1.20); PHOSPHORUS 2.6 mg/dl (2.5-4.9); POTASSIUM 4.1 mmol/L (3.5-5.1)
[2016-07-19] MEDS: ASPIRIN 81 MG ECTAB PO SCH (09:24)
[2016-07-19] MEDS: PANTOprazole SOD 40 MG TAB PO SCH ×2 (09:24→19:55)
[2016-07-19] MEDS: WARFARIN SOD 4 MG TAB PO SCH (15:28)
--- NOTE | 2016-07-19 16:51 | Progress Note ---
Subjective Date of Service: Jul 19, 2016. Subjective Pt evaluation today including: conversation w/ patient, conversation w/ family , physical exam, chart review, lab review, review of studies, review of inpatient medication list Continued doing okay, was able to up and walk with help, no other complaint Problem List Medical Problems: (1) Multiple drug overdose Status: Acute Review of Systems Constitutional: + fatigue, No chills, No fever, No problem reported, No sweats , No weakness, No weight loss Eyes: No diplopia, No discharge, No eye pain, No redness, No worsening of vision ENT: No dental problems, No hearing loss, No nasal symptoms, No sore throat, No tinnitus, No trouble swallowing, No unusual epistaxis Respiratory: No cough, No dyspnea at rest, No dyspnea on exertion, No hemoptysis, No shortness of breath, No sputum, No wheezing Cardiac: No PND, No chest pain, No claudication, No edema, No orthopnea, No palpitations Abdomen: No constipation, No diarrhea, No nausea, No pain, No vomiting Musculoskeletal: No calf pain, No joint pain, No muscle pain, No swelling Female : No abnormal vaginal bleeding, No dysuria, No hematuria, No incontinence, No urinary frequency, No vaginal discharge Neurologic: No balance problems, No memory loss, No numbness/tingling, No paralysis, No vertigo, No weakness Psychiatric: No anhedonism, No anxiety, No depression symptoms, No insomnia, No substance abuse Heme: No abnormal bleeding/bruising, No clotting problems, No night sweats, No swollen lymph nodes Endo: No excessive thirst, No excessive urination, No fatigue Skin: No bleeding, No color change, No itch, No new/changing skin lesions, No rash Objective Vital Signs Date Time Temp Pulse Resp B/P Pulse Ox O2 Delivery O2 Flow Rate FiO2 07/19/16 16:22 36.6 64 18 92 07/19/16 16:00 Room Air 07/19/16 15:10 160/98 07/19/16 15:00 36.6 64 18 158/100 92 Room Air 171/90 07/19/16 12:00 Room Air 07/19/16 11:22 36.4 71 17 162/95 96 Room Air 07/19/16 08:00 Room Air 07/19/16 07:38 36.3 67 18 160/82 97 Room Air 07/19/16 04:10 36.9 62 21 133/63 97 Room Air 07/19/16 04:00 97 Room Air 07/19/16 00:00 98 Room Air 07/19/16 00:00 36.9 74 21 158/93 98 Room Air 07/18/16 20:00 95 Room Air 07/18/16 19:43 36.8 80 20 151/84 95 Room Air Physical Exam General Appearance: WD/WN, no apparent distress, + pertinent finding (looks much better than yesterday, pleasant, conversational) Eyes: normal inspection, PERRL, EOMI, sclerae normal ENT: normal ENT inspection, hearing grossly normal, pharynx normal Neck: supple, no adenopathy, thyroid normal, no JVD, no carotid bruits, trachea midline Respiratory/Chest: chest non-tender, normal breath sounds, no respiratory distress, no accessory muscle use, + decreased breath sounds Cardiovascular: regular rate, rhythm, no edema, no gallop, no JVD, no murmur Abdomen: normal bowel sounds, non tender, soft, no organomegaly, no pulsatile mass Extremities: normal range of motion, non-tender, normal inspection, no pedal edema, no calf tenderness, normal capillary refill, pelvis stable 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, no motor/sensory deficits, alert, normal mood/affect, oriented x 3 Skin: normal color, warm/dry, no rash Lymphatic: no adenopathy Laboratory Results Last 24 Hours Test 07/19/16 06:00 White Blood Count 8.35 K/uL Red Blood Count 4.06 M/uL Hemoglobin 11.9 g/dL Hematocrit 36.3 % Mean Corpuscular Volume 89.4 fL Mean Corpuscular Hemoglobin 29.3 pg Mean Corpuscular Hemoglobin Concent 32.8 g/dl RDW Standard Deviation 44.6 fL RDW Coefficient of Variation 13.7 % Platelet Count 281 K/uL Mean Platelet Volume 10.0 fL Prothrombin Time 15.9 SECONDS Prothromb Time International Ratio 1.5 Sodium Level 138 mmol/L Potassium Level 4.1 mmol/L Chloride Level 102 mmol/L Carbon Dioxide Level 29 mmol/L Anion Gap 7.0 mmol/L Blood Urea Nitrogen 10 mg/dl Creatinine 0.82 mg/dl Est Creatinine Clear Calc Drug Dose 49.6 ml/min Estimated GFR () 75.6 Estimated GFR (Non- 65.3 BUN/Creatinine Ratio 12.5 Random Glucose 99 mg/dl Calcium Level 8.7 mg/dl Phosphorus Level 2.6 mg/dl Magnesium Level 2.0 mg/dl Assessment and Plan 85-year-old female admitted on 07/16/2016 because of Unintentional overdose , stable and improving Per report patient patient was given medicine by error in senior care possible Toxic encephalopathy in setting of Polydrug accidental poisoning/ overdose. Unintentional overdose : Stable vital sign, episode of NSVT with History of A. fib, cont case monitor Resume home dose of Tenormin Bob has been not remarkable Checked phosphorylase and magnesium, which were normal On Coumadin for stroke prevention, INR is sub therapeutic, we'll give additional dose of 2 mg Coumadin tonight , we'll continue current dose of warfarin therapy For the administration of insulin prior to admission, patient has been on D5 half normal saline at 75 an hour for 1 liter with monitoring of her glucoses Glucose has been good, patient stopped eating, DC IV fluid Pressure ulcer of right buttock, stage 2 POA with Lower posterior back open wounds prior to admission, CONSULT wound care Discussed with patient and daughter, daughter request PT OT and rehabilitation if patient needed to, otherwise was sent back to assisted facility in [facility], possible not able to tolerate extensive rehabilitation, will convince to go back to senior care tomorrow MEDICATION LIST prior to admission: Tylenol as needed for pain, aspirin 81 a day, Tenormin 50 b.i.d., atorvastatin 20 a day, bisacodyl p.r.n., Voltaren topical gel p.r.n., Imodium p.r.n., milk of mag p.r.n., Multivite once a day, iron 150 a day, Zantac 150 b.i.d. p.r.n. heartburn, Fleets enema as needed, vitamin D3 at 2000 units a day, potassium 20 mEq a day, and protein 30 mL a day and prune juice. full code. DVT prevention is covered by Coumadin Pending discharge to another nursing facilities, caser on the case Continued [facility] stay due to: home environment unsafe for pt Discharge planning: home
[2016-07-19] MEDS ORDERED: WARFARIN SOD 2 MG TAB PO ONE (17:15)
[2016-07-19] MEDS: ATORVASTATIN 20 MG TAB PO SCH (19:55)
[2016-07-20 07:47] LABS: INR 1.6 (0.9-1.1); PROTHROMBIN TIME (PATIENT) 17.5 SECONDS (9.0-12.0)
[2016-07-20 07:49] VITALS: BP 166/73; PULSE 74; TEMP 36.7; O2SAT 94
[2016-07-20] MEDS: ASPIRIN 81 MG ECTAB PO SCH (08:13)
[2016-07-20] MEDS: PANTOprazole SOD 40 MG TAB PO SCH (08:14)
--- NOTE | 2016-07-20 11:06 | Discharge Instructions ---
Discharge Instructions Date of Service Jul 20, 2016. Admission Reason for Admission: Multiple Drug Overdose Discharge Discharge Diagnosis / Problem: Unintentional overdose Discharge Goals Goal(s): Decrease discomfort, Improve function, Increase independence, Improve disease control, Improve nutritional status, Learn about illness, Diagnostic testing, Therapeutic intervention, Prevent Disease Progression, Specific goals Activity Recommendations Activity Level: Up Ad Elise Therapies: Physical Therapy, Occupational Therapy . 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 - call your primary care physician OR go to local emergency room if has any fever/chill, chest pain, shortness of breathing, nausea/vomiting/abdominal pain , facial droop/slurry speech/local weakness, or if has any questions. - fall precaution - diet as instructed - you need to follow up with your subspecialist Current Hospital Diet Patient's current hospital diet: Regular Diet Discharge Diet Recommended Diet: AHA Diet (Heart Healthy) Pending Studies Studies pending at discharge: no Physician Orders On Transfer POLST Discussion: without POLST completion Laboratory Results Hemoglobin A1c Test 06/02/16 05:45 Range/Units Estimated Average Glucose 108 mg/dl Hemoglobin A1c 5.4 4.5-5.6 % Lipid Panel Test 06/02/16 05:45 Range/Units Triglycerides Level 89 0-150 mg/dl Cholesterol Level 104 0-200 mg/dl HDL Cholesterol 47 mg/dl Cholesterol/HDL Ratio 2.2 LDL Cholesterol, Calculated 39 mg/dl Medical Emergencies . Who to Call and When: Medical Emergencies: If at any time you feel your situation is an emergency, please call 911 immediately. . Non-Emergent Contact Non-Emergency issues call your: Primary Care Provider . . "Provider Documentation" section prepared by Jeremiah Juarez. Core Measure Problem Core Measures: None
--- NOTE | 2016-07-20 11:13 | Discharge Summary ---
Discharge Summary Date of Service Jul 20, 2016. Discharge Summary Admission Date: Jul 17, 2016 at 12:04 Discharge Date: Jul 20, 2016 Discharge Disposition: Rehab Principal Diagnosis: Unintentional overdose Problems/Secondary Diagnoses: history of Dom casey, On Coumadin for stroke prevention, INR is sub therapeutic, Pressure ulcer of right buttock, stage 2 POA, Lower posterior back open wounds prior to admission Immunizations: Have You Had Influenza Vaccine: Unknown History of Tetanus Vaccine?: Unknown History of Pneumococcal: Unknown History of Hepatitis B Vaccine: Unknown Procedures: No Consultations: no Medication Reconciliation Continued Medications: Acetaminophen (Tylenol) 325 Mg Tab 650 MG PO Q8 PRN for Pain, TAB Aspirin (Aspirin Ec) 81 Mg Tab 81 MG PO DAILY Atenolol (Tenormin) 50 Mg Tab 50 MG PO BID, TAB Atorvastatin (Lipitor) 20 Mg Tab 20 MG PO HS, TAB Bisacodyl (Dulcolax) 10 Mg Sup 1 SUPP ME PRN for Constipation, SUP Cholecalciferol (Vitamin D3) 2,000 Unit Tab 2000 UNITS PO DAILY Diclofenac Sodium (Topical) (Voltaren 1% Top Gel) 1 % Gel Loperamide Hcl (Imodium) 2 Mg Cap 2 MG PO PRN for Diarrhea, CAP Magnesium Hydroxide (Milk Of Magnesia) 30 Ml Susp 30 ML PO UD, ML Multiple Vitamin (Daily Rigoberto) 1 Tab Tab 1 TAB PO DAILY Pantoprazole (Protonix) 40 Mg Tab 40 MG PO BID Polysaccharide Iron Complex (Ferrex 150) 150 Mg Cap 150 MG PO DAILY Potassium Chloride (K-Tabs) 10 Meq Tabcr 20 MEQ PO QAM Protein (Protein) 1 Pow Pow 30 ML PO BID Prune Juice (Prune Juice ) Liqd 8 OZ PO PRN for Constipation Ranitidine Hcl (Zantac) 150 Mg Tab 150 MG PO BID PRN for Heartburn, TAB Sodium Phosphate/Biphosphate (Fleet Enema) Louise 1 EA ME DAILY PRN for Constipation, BTL Warfarin Sod (Coumadin) 2 Mg Tab 2 MG PO Q2D ALTERNATING WITH 4MG (ODD DAYS) Warfarin Sod (Coumadin) 4 Mg Tab 4 MG PO Q2D ALTERNATING WITH 2MG (EVEN DAYS) Discharge Exam Doing well, sitting up and reading newspaper, no other complaint Review of Systems: Constitutional: No chills, No fatigue, No fever, No problem reported, No sweats, No weakness, No weight loss Eyes: No diplopia, No discharge, No eye pain, No problem reported, No redness, No worsening of vision ENT: No dental problems, No hearing loss, No nasal symptoms, No problem reported, No sore throat, No tinnitus, No trouble swallowing, No unusual epistaxis Respiratory: No cough, No dyspnea at rest, No dyspnea on exertion, No hemoptysis, No problem reported, No shortness of breath, No sputum, No wheezing Cardiovascular: No PND, No chest pain, No claudication, No edema, No orthopnea, No palpitations, No problem reported Abdomen: No GI bleeding, No constipation, No diarrhea, No nausea, No pain, No problem reported, No vomiting Musculoskeletal: No calf pain, No joint pain, No muscle pain, No problem reported, No swelling Genitourinary - Female: No dysmenorrhea, No dysuria, No hematuria, No menorrhagia, No metrorrhagia, No , No problem reported, No rash, No urinary frequency, No urinary incontinence, No urinary retention, No urinary urgency, No vaginal bleeding, No vaginal discharge, No vaginal itching, No vulvodynia Neurologic: No balance problems, No memory loss, No numbness/tingling, No paralysis, No problem reported, No vertigo, No weakness Psychiatric: No anhedonism, No anxiety, No depression symptoms, No insomnia , No problem reported, No substance abuse Endocrine: No excessive thirst, No excessive urination, No fatigue, No problem reported Hematologic / Lymphatic: No abnormal bleeding/bruising, No clotting problems , No night sweats, No problem reported, No swollen lymph nodes Integumentary: No bleeding, No color change, No itch, No new/changing skin lesions, No problem reported, No rash Physical Exam: General Appearance: WD/WN, no apparent distress Eyes: normal inspection, PERRL, EOMI ENT: normal ENT inspection, hearing grossly normal, TMs normal, pharynx normal Neck: supple, no adenopathy, thyroid normal Respiratory/Chest: chest non-tender, + decreased breath sounds Cardiovascular: regular rate, rhythm, no edema, no gallop, no JVD Abdomen / GI: normal bowel sounds, non tender, soft, no organomegaly, no pulsatile mass Extremities: normal inspection, no calf tenderness, normal capillary refill , no pedal edema, normal range of motion 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 Unintentional overdose : Stable vital sign, episode of NSVT totally resolved, no new episode or c/o. 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 Resume home dose of Tenormin tele has been not remarkable Checked phosphorylase and magnesium, which were normal On Coumadin for stroke prevention, INR is sub therapeutic, we'll give additional dose of 2 mg Coumadin tonight , we'll continue current dose of warfarin therapy For the administration of insulin prior to admission, patient has been on D5 half normal saline at 75 an hour for 1 liter with monitoring of her glucoses Glucose has been good, patient stopped eating, DC IV fluid Pressure ulcer of right buttock, stage 2 POA with Lower posterior back open wounds prior to admission, need to continue wound care Discussed with patient and daughter, daughter request PT OT and rehabilitation MEDICATION LIST prior to admission: Tylenol as needed for pain, aspirin 81 a day, Tenormin 50 b.i.d., atorvastatin 20 a day, bisacodyl p.r.n., Voltaren topical gel p.r.n., Imodium p.r.n., milk of mag p.r.n., Multivite once a day, iron 150 a day, Zantac 150 b.i.d. p.r.n. heartburn, Fleets enema as needed, vitamin D3 at 2000 units a day, potassium 20 mEq a day, and protein 30 mL a day and prune juice. full code. 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 - call your primary care physician OR go to local emergency room if has any fever/chill, chest pain, shortness of breathing, nausea/vomiting/abdominal pain , facial droop/slurry speech/local weakness, or if has any questions. - fall precaution - diet as instructed - you need to follow up with your subspecialist Total Time Spent: Greater than 30 minutes This includes examination of the patient, discharge planning, medication reconciliation, and communication with other providers. Discharge Instructions Please refer to the electronic Patient Visit Report (Discharge Instructions) for additional information.
[2016-07-20 11:14] VITALS: BP 166/73; PULSE 74; TEMP 36.7; O2SAT 94
== END 2016-07-20 14:43 | DRG 917 ==
LOC: ENRESERVTM → CANRESERV → ENRESERVDT → EDBD 09:11 → C.EDA 09:12 → C.2E 12:20 → EDBEDREQ 12:21 → EDBEDREQSVC 12:21 → OBSVTOIN 07-17 12:04 → C.MS4W 07-19 18:48
PROVIDERS: ADMIT Internal Medicine; ATTEND Hospitalist
DX: T43.591A Poisoning by other antipsychotics and neuroleptics, accidental (unintentional), initial encounter (principal); G92 Toxic encephalopathy; T46.5X1A Poisoning by other antihypertensive drugs, accidental (unintentional), initial encounter; T43.8X1A Poisoning by other psychotropic drugs, accidental (unintentional), initial encounter; T38.3X1A Poisoning by insulin and oral hypoglycemic [antidiabetic] drugs, accidental (unintentional), initial encounter; T46.3X1A Poisoning by coronary vasodilators, accidental (unintentional), initial encounter; T42.4X1A Poisoning by benzodiazepines, accidental (unintentional), initial encounter; L89.312 Pressure ulcer of right buttock, stage 2; I48.91 Unspecified atrial fibrillation; I10 Essential (primary) hypertension; E78.5 Hyperlipidemia, unspecified; M81.0 Age-related osteoporosis without current pathological fracture; I69.320 Aphasia following cerebral infarction; Z86.718 Personal history of other venous thrombosis and embolism; Z85.828 Personal history of other malignant neoplasm of skin; Z92.3 Personal history of irradiation; Z87.19 Personal history of other diseases of the digestive system; Z90.49 Acquired absence of other specified parts of digestive tract; Z79.01 Long term (current) use of anticoagulants; Z79.82 Long term (current) use of aspirin; Z79.899 Other long term (current) drug therapy

== ENCOUNTER → 2016-08-16 | Outpatient (CLI) | payer OTHER ==
[~2016-08-16] MED LIST changes: +ACET-1311 PO; -ATOR-24 PEG; +ATOR-54 PO; +BISA10SU3 PR; -BISA10SU5 PR; +CHOL20005 PO; -CLEAR LAX PEG; +CMD4 PO; +DICL1GEL12; -ERGO500037 PEG; +IMD/2 PO; +MCRK/10 PO; +MULT-411 PO; -POLY150C PEG; +POLY150C4 PO; -POTA-335 PEG; +PRNJ PO; +PROT1POW PO; +RANI150T3 PO; -SACC250C PO; +SODIENE PR; +TCMD2 PO; -XRL10 PO
[2016-08-17 08:43] LABS: INR 1.2 (0.9-1.1); PROTHROMBIN TIME (PATIENT) 12.7 SECONDS (9.0-12.0)
== END ==
LOC: C.LABCC 13:13 → EDSTATUS 08-25 12:50
PROVIDERS: ATTEND Internal Medicine
DX: I48.91 Unspecified atrial fibrillation (principal)

== ENCOUNTER → 2016-08-23 | Outpatient (CLI) | payer OTHER ==
[2016-08-23 19:20] LABS: URINE APPEARANCE CLOUDY (CLEAR); URINE BILIRUBIN NEG (NEG); URINE COLOR YELLOW; URINE EPITHELIAL CELL AUTO 0-5 /lpf (0-5); URINE NITRITE NEG (NEG); URINE SPECIFIC GRAVITY 1.014 (1.000-1.030); UROBILINOGEN NEG (NEG)
[2016-08-23 19:23] LABS: MANUAL MICROSCOPIC REQUIRED? NO; REVIEW REQ? YES
== END ==
LOC: C.LABCC 13:13 → EDSTATUS 08-25 12:50
PROVIDERS: ATTEND Internal Medicine
DX: R41.82 Altered mental status, unspecified (principal)

== ENCOUNTER → 2016-08-28 | Outpatient (CLI) | payer OTHER ==
[2016-08-28 09:30] LABS: INR 1.2 (0.9-1.1); PROTHROMBIN TIME (PATIENT) 12.7 SECONDS (9.0-12.0)
== END ==
LOC: C.LABCC 08:12
PROVIDERS: ATTEND Internal Medicine
DX: I48.91 Unspecified atrial fibrillation (principal)

== ENCOUNTER → 2016-08-31 | Outpatient (CLI) | payer OTHER ==
[2016-08-31 09:46] LABS: INR 1.2 (0.9-1.1); PROTHROMBIN TIME (PATIENT) 12.8 SECONDS (9.0-12.0)
== END ==
LOC: C.LABCC 08:18
PROVIDERS: ATTEND Internal Medicine
DX: I48.91 Unspecified atrial fibrillation (principal)

== ENCOUNTER → 2016-09-05 | Outpatient (CLI) | payer OTHER ==
[2016-09-05 10:16] LABS: INR 1.1 (0.9-1.1); PROTHROMBIN TIME (PATIENT) 12.2 SECONDS (9.0-12.0)
== END | disposition home or self-care (01) ==
LOC: C.LABCC 09:28
PROVIDERS: ATTEND Internal Medicine
DX: I48.91 Unspecified atrial fibrillation (principal)

== ENCOUNTER → 2016-09-13 | Outpatient (CLI) | payer OTHER ==
[2016-09-13 12:36] LABS: PROTHROMBIN TIME (PATIENT) 49.8 SECONDS (9.0-12.0)
[2016-09-13 12:43] LABS: INR 4.4 (0.9-1.1)
== END | disposition home or self-care (01) ==
LOC: C.LABCC 11:35
PROVIDERS: ATTEND Internal Medicine
DX: I48.91 Unspecified atrial fibrillation (principal)

== ENCOUNTER → 2016-09-18 | Outpatient (CLI) | payer OTHER ==
[2016-09-18 10:27] LABS: INR 2.6 (0.9-1.1); PROTHROMBIN TIME (PATIENT) 28.4 SECONDS (9.0-12.0)
== END ==
LOC: C.LABCC 08:25
PROVIDERS: ATTEND Internal Medicine
DX: I48.91 Unspecified atrial fibrillation (principal)

== ENCOUNTER → 2016-09-25 | Outpatient (CLI) | payer OTHER ==
[2016-09-25 13:40] LABS: PROTHROMBIN TIME (PATIENT) 77.5 SECONDS (9.0-12.0)
[2016-09-25 13:42] LABS: INR 6.7 (0.9-1.1)
== END | disposition home or self-care (01) ==
LOC: C.LABCC 12:21
PROVIDERS: ATTEND Internal Medicine
DX: I48.91 Unspecified atrial fibrillation (principal)

== ENCOUNTER → 2016-09-26 | Outpatient (CLI) | payer OTHER ==
[2016-09-26 09:23] LABS: INR 6.8 (0.9-1.1)
== END ==
LOC: C.LABCC 07:56
PROVIDERS: ATTEND Internal Medicine
DX: I48.91 Unspecified atrial fibrillation (principal)

== ENCOUNTER → 2016-09-27 | Outpatient (CLI) | payer OTHER ==
[2016-09-27 09:18] LABS: INR 2.1 (0.9-1.1); PROTHROMBIN TIME (PATIENT) 23.4 SECONDS (9.0-12.0)
== END ==
LOC: C.LABCC 07:59
PROVIDERS: ATTEND Internal Medicine
DX: I48.91 Unspecified atrial fibrillation (principal)

== ENCOUNTER → 2016-10-02 | Outpatient (CLI) | payer OTHER ==
[2016-10-02 10:57] LABS: INR 1.9 (0.9-1.1); PROTHROMBIN TIME (PATIENT) 21.4 SECONDS (9.0-12.0)
== END | disposition home or self-care (01) ==
LOC: C.LABCC 08:56
PROVIDERS: ATTEND Internal Medicine
DX: I48.91 Unspecified atrial fibrillation (principal)

== ENCOUNTER → 2016-10-05 | Outpatient (CLI) | payer OTHER ==
[2016-10-05 09:10] LABS: INR 2.1 (0.9-1.1); PROTHROMBIN TIME (PATIENT) 22.7 SECONDS (9.0-12.0)
== END ==
LOC: C.LABCC 07:49
PROVIDERS: ATTEND Internal Medicine
DX: I48.91 Unspecified atrial fibrillation (principal)

== ENCOUNTER → 2016-10-12 | Outpatient (CLI) | payer OTHER ==
[2016-10-12 10:50] LABS: PROTHROMBIN TIME (PATIENT) 71.2 SECONDS (9.0-12.0)
[2016-10-12 11:03] LABS: INR 6.2 (0.9-1.1)
== END ==
LOC: C.LABCC 09:38
PROVIDERS: ATTEND Internal Medicine
DX: I48.91 Unspecified atrial fibrillation (principal)

== ENCOUNTER → 2016-10-16 | Outpatient (CLI) | payer OTHER ==
[2016-10-16 08:59] LABS: PROTHROMBIN TIME (PATIENT) 22.1 SECONDS (9.0-12.0)
== END ==
LOC: C.LABCC 08:25
PROVIDERS: ATTEND Internal Medicine
DX: I48.91 Unspecified atrial fibrillation (principal)

== ENCOUNTER → 2016-10-23 | Outpatient (CLI) | payer OTHER ==
[2016-10-23 09:15] LABS: INR 1.3 (0.9-1.1)
== END ==
LOC: C.LABCC 08:05
PROVIDERS: ATTEND Internal Medicine
DX: I48.91 Unspecified atrial fibrillation (principal)

== ENCOUNTER → 2016-10-31 | Outpatient (CLI) | payer OTHER ==
[2016-10-31 08:44] LABS: INR 1.4 (0.9-1.1); PROTHROMBIN TIME (PATIENT) 15.2 SECONDS (9.0-12.0)
[2016-10-31 08:49] LABS: CHOLESTEROL/HDL RATIO 2.4
== END ==
LOC: C.LABCC 07:59
PROVIDERS: ATTEND Internal Medicine
DX: I48.91 Unspecified atrial fibrillation (principal); E78.5 Hyperlipidemia, unspecified

== ENCOUNTER → 2016-11-03 | Outpatient (CLI) | payer OTHER ==
[2016-11-03 18:16] LABS: URINE APPEARANCE CLEAR (CLEAR); URINE BILIRUBIN NEG (NEG); URINE COLOR DK YELLOW; URINE NITRITE NEG (NEG); URINE SPECIFIC GRAVITY 1.015 (1.000-1.030); UROBILINOGEN NEG (NEG)
[2016-11-03 18:20] LABS: MANUAL MICROSCOPIC REQUIRED? NO; REVIEW REQ? NO
== END ==
LOC: C.LABCC 17:34
PROVIDERS: ATTEND Internal Medicine
DX: R41.82 Altered mental status, unspecified (principal)

== ENCOUNTER → 2016-11-06 | Outpatient (CLI) | payer OTHER ==
[2016-11-06 11:17] LABS: INR 1.5 (0.9-1.1); PROTHROMBIN TIME (PATIENT) 16.1 SECONDS (9.0-12.0)
== END ==
LOC: C.LABCC 09:12
PROVIDERS: ATTEND Internal Medicine
DX: I48.91 Unspecified atrial fibrillation (principal)

== ENCOUNTER → 2016-11-13 | Outpatient (CLI) | payer OTHER ==
[2016-11-13 09:52] LABS: INR 1.7 (0.9-1.1); PROTHROMBIN TIME (PATIENT) 18.1 SECONDS (9.0-12.0)
== END ==
LOC: C.LABCC 09:14
PROVIDERS: ATTEND Internal Medicine
DX: I48.91 Unspecified atrial fibrillation (principal)

== ENCOUNTER → 2016-11-16 | Outpatient (CLI) | payer OTHER ==
[2016-11-16 16:12] LABS: URINE APPEARANCE TURBID (CLEAR); URINE BILIRUBIN NEG (NEG); URINE COLOR DK YELLOW; URINE NITRITE NEG (NEG); URINE SPECIFIC GRAVITY 1.014 (1.000-1.030); UROBILINOGEN NEG (NEG)
[2016-11-16 16:36] LABS: MANUAL MICROSCOPIC REQUIRED? NO; REVIEW REQ? YES
--- NOTE | 2016-11-18 12:19 | CODING QUERY NO DIAGNOSIS ---
TREATMENT RENDERED WITHOUT A DIAGNOSIS To promote full compliance with coding requirements relating to patient care, physician participation is requested in all cases of display coordinator uncertainty. Please assist us with providing a diagnosis/symptom for the test(s) below: A diagnosis/symptom was not documented on your Order. A valid diagnosis/symptom is required to bill all insurances. Please remember that we are unable to code a diagnosis of rule out, probable, possible, questionable, or suspected. Tests that require a diagnosis: * UA CATH DIAGNOSIS: * URINE CULTURE CATH DIAGNOSIS: Provider Signature: Date: Thank you Mia [employer] Information Management Once completed, please kindly fax back to [phone] For questions please call [phone]
== END ==
LOC: C.LABSPEC 14:07
PROVIDERS: ATTEND Internal Medicine
DX: R41.82 Altered mental status, unspecified (principal)

== ENCOUNTER → 2016-11-20 | Outpatient (CLI) | payer OTHER ==
[2016-11-20 10:14] LABS: INR 3.3 (0.9-1.1)
== END ==
LOC: C.LABCC 09:37
PROVIDERS: ATTEND Internal Medicine
DX: I48.91 Unspecified atrial fibrillation (principal)

== ENCOUNTER → 2016-11-23 | Outpatient (CLI) | payer OTHER ==
[2016-11-23 08:22] LABS: INR 2.6 (0.9-1.1); PROTHROMBIN TIME (PATIENT) 28.9 SECONDS (9.0-12.0)
== END ==
LOC: C.LABCC 07:56
PROVIDERS: ATTEND Internal Medicine
DX: I48.91 Unspecified atrial fibrillation (principal)

== ENCOUNTER → 2016-11-27 | Outpatient (CLI) | payer OTHER ==
[2016-11-27 11:01] LABS: INR 2.5 (0.9-1.1); PROTHROMBIN TIME (PATIENT) 27.9 SECONDS (9.0-12.0)
== END ==
LOC: C.LABCC 10:21
PROVIDERS: ATTEND Internal Medicine
DX: I48.91 Unspecified atrial fibrillation (principal)

== ENCOUNTER → 2016-12-04 | Outpatient (CLI) | payer OTHER ==
[2016-12-04 10:00] LABS: INR 2.3 (0.9-1.1); PROTHROMBIN TIME (PATIENT) 25.4 SECONDS (9.0-12.0)
== END ==
LOC: C.LABCC 09:35
PROVIDERS: ATTEND Internal Medicine
DX: I48.91 Unspecified atrial fibrillation (principal)

== ENCOUNTER → 2016-12-19 | Outpatient (CLI) | payer OTHER ==
[2016-12-19 11:29] LABS: INR 1.9 (0.9-1.1); PROTHROMBIN TIME (PATIENT) 20.8 SECONDS (9.0-12.0)
== END ==
LOC: C.LABCC 08:58
PROVIDERS: ATTEND Internal Medicine
DX: I48.91 Unspecified atrial fibrillation (principal)

== ENCOUNTER → 2017-01-02 | Outpatient (CLI) | payer OTHER ==
[2017-01-02 08:39] LABS: INR 1.3 (0.9-1.1); PROTHROMBIN TIME (PATIENT) 13.8 SECONDS (9.0-12.0)
== END ==
LOC: C.LABCC 08:01
PROVIDERS: ATTEND Internal Medicine
DX: I48.91 Unspecified atrial fibrillation (principal)

== ENCOUNTER → 2017-01-09 | Outpatient (CLI) | payer OTHER ==
[2017-01-09 08:37] LABS: INR 1.3 (0.9-1.1); PROTHROMBIN TIME (PATIENT) 14.1 SECONDS (9.0-12.0)
== END ==
LOC: C.LABCC 07:55
PROVIDERS: ATTEND Internal Medicine
DX: I48.91 Unspecified atrial fibrillation (principal)

== ENCOUNTER → 2017-01-16 | Outpatient (CLI) | payer OTHER ==
[2017-01-16 09:07] LABS: INR 1.6 (0.9-1.1); PROTHROMBIN TIME (PATIENT) 16.9 SECONDS (9.0-12.0)
== END ==
LOC: C.LABCC 08:41
PROVIDERS: ATTEND Internal Medicine
DX: I48.91 Unspecified atrial fibrillation (principal)

== ENCOUNTER → 2017-01-22 | Outpatient (CLI) | payer OTHER ==
[2017-01-22 09:08] LABS: INR 1.6 (0.9-1.1); PROTHROMBIN TIME (PATIENT) 17.1 SECONDS (9.0-12.0)
== END ==
LOC: C.LABCC 08:44
PROVIDERS: ATTEND Internal Medicine
DX: I48.91 Unspecified atrial fibrillation (principal)

== ENCOUNTER → 2017-01-26 | Outpatient (CLI) | payer OTHER ==
[2017-01-26 09:49] LABS: INR 2.2 (0.9-1.1); PROTHROMBIN TIME (PATIENT) 24.2 SECONDS (9.0-12.0)
== END ==
LOC: C.LABCC 09:06
PROVIDERS: ATTEND Internal Medicine
DX: I48.91 Unspecified atrial fibrillation (principal)

== ENCOUNTER → 2017-02-01 | Outpatient (CLI) | payer OTHER ==
[2017-02-01 09:15] LABS: INR 2.8 (0.9-1.1); PROTHROMBIN TIME (PATIENT) 30.9 SECONDS (9.0-12.0)
== END ==
LOC: C.LABCC 08:28
PROVIDERS: ATTEND Internal Medicine
DX: I48.91 Unspecified atrial fibrillation (principal)

== ENCOUNTER → 2017-02-12 | Outpatient (CLI) | payer OTHER ==
[2017-02-12 09:02] LABS: INR 1.9 (0.9-1.1); PROTHROMBIN TIME (PATIENT) 21.4 SECONDS (9.0-12.0)
== END ==
LOC: C.LABCC 07:54
PROVIDERS: ATTEND Internal Medicine
DX: I48.91 Unspecified atrial fibrillation (principal)

== ENCOUNTER → 2017-02-19 | Outpatient (CLI) | payer OTHER ==
[2017-02-19 09:20] LABS: INR 3.4 (0.9-1.1); PROTHROMBIN TIME (PATIENT) 38.1 SECONDS (9.0-12.0)
== END ==
LOC: C.LABCC 08:47
PROVIDERS: ATTEND Internal Medicine
DX: I48.91 Unspecified atrial fibrillation (principal)

== ENCOUNTER → 2017-02-26 | Outpatient (CLI) | payer OTHER ==
[2017-02-26 10:07] LABS: INR 3.5 (0.9-1.1)
== END ==
LOC: C.LABCC 09:11
PROVIDERS: ATTEND Internal Medicine
DX: I48.91 Unspecified atrial fibrillation (principal)

== ENCOUNTER → 2017-03-04 | Outpatient (CLI) | payer OTHER ==
[2017-03-04 08:31] LABS: URINE APPEARANCE CLEAR (CLEAR); URINE BILIRUBIN NEG (NEG); URINE COLOR YELLOW; URINE NITRITE NEG (NEG); URINE PH 6.5 (4.5-7.5); URINE SPECIFIC GRAVITY 1.012 (1.000-1.030); UROBILINOGEN NEG (NEG)
[2017-03-04 09:16] LABS: MANUAL MICROSCOPIC REQUIRED? NO; REVIEW REQ? NO
== END ==
LOC: C.LABCC 10:11
PROVIDERS: ATTEND Internal Medicine
DX: R41.82 Altered mental status, unspecified (principal)

== ENCOUNTER → 2017-03-06 | Outpatient (CLI) | payer OTHER ==
[2017-03-06 08:24] LABS: INR 2.4 (0.9-1.1); PROTHROMBIN TIME (PATIENT) 26.3 SECONDS (9.0-12.0)
== END ==
LOC: C.LABCC 08:08
PROVIDERS: ATTEND Internal Medicine
DX: I48.91 Unspecified atrial fibrillation (principal)

== ENCOUNTER → 2017-03-23 | Outpatient (CLI) | payer OTHER ==
[~2017-03-23] MED LIST changes: +AMLO-114 PO; +APIX1TAB3 PO; +DOCU100T7 PO; +IPRASOL4 INH; +METO100T44 PO; +MULTTAB63 PO; +SENN1TAB65 PO; +SIMV40TA2 PO
[2017-03-23 17:59] LABS: INR 1.1 (0.9-1.1); PROTHROMBIN TIME (PATIENT) 11.5 SECONDS (9.0-12.0)
== END ==
LOC: C.LABCC 17:06
PROVIDERS: ATTEND Internal Medicine
DX: I48.91 Unspecified atrial fibrillation (principal)

== ENCOUNTER → 2017-03-26 | Outpatient (CLI) | payer OTHER ==
[~2017-03-26] MED LIST changes: -AMLO-114 PO; -APIX1TAB3 PO; -DOCU100T7 PO; -IPRASOL4 INH; -METO100T44 PO; -MULTTAB63 PO; -SENN1TAB65 PO; -SIMV40TA2 PO
[2017-03-26 08:38] LABS: INR 1.1 (0.9-1.1); PROTHROMBIN TIME (PATIENT) 11.4 SECONDS (9.0-12.0)
== END ==
LOC: C.LABCC 07:51
PROVIDERS: ATTEND Internal Medicine
DX: I48.91 Unspecified atrial fibrillation (principal)

== ENCOUNTER → 2017-03-27 | Outpatient (CLI) | payer OTHER ==
[2017-03-27 08:23] LABS: INR 1.1 (0.9-1.1); PROTHROMBIN TIME (PATIENT) 11.2 SECONDS (9.0-12.0)
== END ==
LOC: C.LABCC 07:54
PROVIDERS: ATTEND Internal Medicine
DX: I48.91 Unspecified atrial fibrillation (principal)

== ENCOUNTER → 2017-03-28 | Outpatient (CLI) | payer OTHER ==
[2017-03-28 09:11] LABS: PROTHROMBIN TIME (PATIENT) 10.9 SECONDS (9.0-12.0)
== END ==
LOC: C.LABCC 08:38
PROVIDERS: ATTEND Internal Medicine
DX: I48.91 Unspecified atrial fibrillation (principal)

== ENCOUNTER → 2017-04-03 | Outpatient (CLI) | payer OTHER ==
[~2017-04-03] MED LIST changes: +AMLO10TA3 PO; +APIX1TAB3 PO; +DOCU100T7 PO; +IPRA-64 INH; +METO100T44 PO; +MULTTAB63 PO; +SENN1TAB65 PO; +SIMV40TA2 PO
[2017-04-03 10:31] LABS: BLOOD UREA NITROGEN 4 mg/dl (7-18); CALCIUM 8.8 mg/dl (8.5-10.1); CARBON DIOXIDE 30 mmol/L (21-32); GLUCOSE 88 mg/dl (70-99); POTASSIUM 4.1 mmol/L (3.5-5.1); SODIUM 129 mmol/L (136-145)
== END ==
LOC: C.LABCC 09:52
PROVIDERS: ATTEND Internal Medicine
DX: I10 Essential (primary) hypertension (principal)

== ENCOUNTER → 2017-04-04 | Outpatient (CLI) | payer OTHER ==
[2017-04-04 10:09] LABS: BLOOD UREA NITROGEN 3 mg/dl (7-18); CALCIUM 8.6 mg/dl (8.5-10.1); CARBON DIOXIDE 27 mmol/L (21-32); CREATININE 0.72 mg/dl (0.60-1.20); GLUCOSE 85 mg/dl (70-99); POTASSIUM 4.1 mmol/L (3.5-5.1); SODIUM 128 mmol/L (136-145)
== END ==
LOC: C.LABCC 09:16
PROVIDERS: ATTEND Internal Medicine
DX: Z79.01 Long term (current) use of anticoagulants (principal); Z51.81 Encounter for therapeutic drug level monitoring

== ENCOUNTER → 2017-04-05 | Outpatient (CLI) | payer OTHER ==
[~2017-04-05] MED LIST changes: +AMLO-114 PO; -AMLO10TA3 PO; -IPRA-64 INH; +IPRASOL4 INH
[2017-04-05 08:58] LABS: INR 1.3 (0.9-1.1); PROTHROMBIN TIME (PATIENT) 13.4 SECONDS (9.0-12.0)
== END ==
LOC: C.LABCC 08:06
PROVIDERS: ATTEND Internal Medicine
DX: I48.91 Unspecified atrial fibrillation (principal)

== ENCOUNTER → 2017-04-06 | Outpatient (CLI) | payer OTHER ==
[~2017-04-06] MED LIST changes: -AMLO-114 PO; +AMLO10TA3 PO; +IPRA-64 INH; -IPRASOL4 INH
== END ==
LOC: C.LABCC 08:40
PROVIDERS: ATTEND Internal Medicine
DX: R41.0 Disorientation, unspecified (principal)

== ENCOUNTER 2017-04-07 23:38 | Inpatient (IN) | payer OTHER ==
[~2017-04-07] VITALS: Ht 157.5 cm; Wt 84.7 kg
[~2017-04-07 23:38] MED LIST changes: -AMLO10TA3 PO; -APIX1TAB3 PO; -DOCU100T7 PO; -IPRA-64 INH; -METO100T44 PO; -MULTTAB63 PO; -SENN1TAB65 PO; -SIMV40TA2 PO
[2017-04-08 00:08] VITALS: TEMP 36.7
[2017-04-08] MEDS ORDERED: MoRPHine SULFATE 4 MG/ML 1 ML CARP\\VIAL IV STA ×2 (00:08→01:30)
[2017-04-08] MEDS ORDERED: METOPROLOL TARTRATE 1 MG/ML VIAL IV STA ×2 (00:08→01:30)
[2017-04-08 00:15] VITALS: O2SAT 98
[2017-04-08 00:32] LABS: BASO % 0.1 %; BASO ABS # 0.02 K/uL (0-0.2); HEMATOCRIT 44.6 % (37-47); HEMOGLOBIN 15.3 g/dL (12.0-16.0); IG# 0.07 K/uL (0.00-0.02); LYMPH % 10.5 %; LYMPH ABS # 1.81 K/uL (1.2-3.4); MEAN CELL VOLUME 86.4 fL (80-100); MEAN CORPUSCULAR HEMOGLOBIN 29.7 pg (25-34); MEAN CORPUSCULAR HGB CONC 34.3 g/dl (32-36); MEAN PLATELET VOLUME 10.4 fL (7.4-10.4); MONO % 9.1 %; MONO ABS # 1.58 K/uL (0.11-0.59); NEUT % 79.9 %; NEUT ABS # 13.79 K/uL (1.4-6.5); PLATELET COUNT 194 K/uL (130-400); RED CELL DISTRIBUTION WIDTH SD 41.4 fL (36.4-46.3); WHITE BLOOD COUNT 17.27 K/uL (4.8-10.8)
[2017-04-08 00:41] LABS: INR 1.2 (0.9-1.1)
--- NOTE | 2017-04-08 00:42 | EMERGENCY ROOM VISIT NOTE ---
History Report prepared by Veronica: Emanuel Garcia Under the Supervision of: Dr. Debora Key D.O. First contact with patient: 23:40 Chief Complaint: STROKE SYMPTOMS Stated Complaint: STROKE SYMPTOMS History of Present Illness The patient is a 86 year old female who presents to the Emergency Room by EMS for evaluation of a persistent unresponsive state. She is a resident at [facility]. Per EMS, the patient's last known well time was about four hours ago when staff was administering nighttime medications. They note that the patient' s blood pressure was found to be 240/131 on scene, and her oxygen saturation in the 50's on scene. They state that her oxygen saturations were raised to 90% on 15L of supplemental oxygen en route. The patient is noted to have a possible left sided facial droop, and a dilated right pupil as well. She is on Eliquis. She was switched to Eliquis from Coumadin a few days ago. The patient is reported to be DNR/DNI. Per daughter, the patient has some baseline confusion and is generally oriented to person, sometimes location, but usually not time. She notes that the patient has been acting a little abnormally this week, and is concerned that the patient may have had several TIA's. HPI limited secondary to altered mental status. Source of History: family (daughter), EMS History Limited By: AMS Onset: Last known well time four hours ago Quality: other (unresponsive state) Timing: other (persistent) Note: Additional symptoms: left sided facial droop, dilated right pupil. Review of Systems ROS limited secondary to altered mental status. Past Medical & Surgical Medical Problems: (1) Atrial Fibrillation (2) Cholelithiasis Nos (3) Comfort measures only status (4) CVA (cerebral vascular accident) (5) Dehydration (6) Fall (7) Hyperlipidemia Nec/Nos (8) Hypertension Nos (9) Hyponatremia (10) incidential over dose (11) Left humeral fracture (12) MRSA cellulitis (13) Osteoporosis Nos (14) Overdose (15) TIA (transient ischemic attack) Family History Omitted due to advanced age Social History Smoking Status: Never Smoker Drug Use: none Marital Status: Housing Status: jail Occupation Status: retired Current/Historical Medications Scheduled Amlodipine (Norvasc), 10 MG PO DAILY Apixaban (Eliquis), 5 MG PO BID Aspirin (Aspirin Ec), 81 MG PO Q2D Cholecalciferol (Vitamin D3), 2,000 UNITS PO DAILY Docusate Sodium (Stool Softener), 100 MG PO BID Metoprolol Succ (Toprol Xl) (Toprol-Xl ), 100 MG PO DAILY Multiple Vitamins W/ Minerals (Therems M), 1 TAB PO DAILY Pantoprazole (Protonix), 40 MG PO BID Polysaccharide Iron Complex (Ferrex 150), 150 MG PO QAM Potassium Chloride (K-Tabs), 20 MEQ PO QAM Ranitidine Hcl (Zantac), 150 MG PO QAM Sennosides-Docusate Sodium (Senna Plus), 1 TAB PO QAM Simvastatin (Zocor), 40 MG PO QPM Scheduled PRN Acetaminophen (Tylenol), 650 MG PO Q6 PRN for Pain or Fever Ipratropium-Albuterol (Duoneb), 1 TREATMENT INH Q6 PRN for Chest Pain Allergies Coded Allergies: Morphine (Verified Allergy, Unknown, 04/08/17) Sulfa Antibiotics (Verified Allergy, Unknown, UNKNOWN, 04/08/17) Physical Exam Vital Signs Date Time Temp Pulse Resp B/P (MAP) Pulse Ox O2 Delivery O2 Flow Rate FiO2 04/08/17 00:44 94 18 200/114 100 Non-Rebreather 15.0 04/08/17 00:29 114 18 181/118 100 Non-Rebreather 15.0 04/08/17 00:20 147 235/146 04/08/17 00:15 98 Non-Rebreather 15.0 04/08/17 00:08 36.7 136 26 235/146 100 Non-Rebreather 15.0 04/07/17 23:58 137 Physical Exam GENERAL: alert, well appearing, well nourished, no distress, non-toxic EYE EXAM: Right pupil markedly dilated compared to left. Rightward gaze noted. OROPHARYNX: no exudate, no erythema, lips, buccal mucosa, and tongue normal and mucous membranes are moist NECK: supple, no nuchal rigidity, no adenopathy, non-tender LUNGS: Decreased lung sounds. Normal chest wall mechanics HEART: Tachycardic rate with an irregular rhythm. ABDOMEN: abdomen soft, non-tender, normo-active bowel sounds, no masses, no rebound or guarding. BACK: Back is symmetrical on inspection and there is no deformity, no midline tenderness, no CVA tenderness. SKIN: no rashes and no bruising UPPER EXTREMITIES: upper extremities are grossly normal. LOWER EXTREMITIES: Chronic venous stasis changes bilaterally. No pitting edema. NEURO EXAM: Patient moans. Questionable mild left facial droop. No response Babinski testing. No response to painful stimuli. Medical Decision & Procedures ER Provider Diagnostic Interpretation: CT results per statrad and my review. CT HEAD: Comparison is made to prior CT head on 07/14/2014. No acute intracranial abnormality identified. Remote infarct in the inferior right cerebellar hemisphere. Increased chronic small vessel ischemic disease and similar to slightly increased cerebral volume loss. Small remote infarcts in the right caudate head and right basal ganglia. Bilateral lens implants. One View Chest X-ray interpreted by me: limited by poor positioning. Cardiomegaly. Calcified aortic knob. Due to positioning, unable to completely see left diaphragmatic angle. No right pleural effusion. No focal consolidation. No overt pulmonary edema. Laboratory Results 04/08/17 00:19 Red Blood Count 5.16, Mean Corpuscular Volume 86.4, Mean Corpuscular Hemoglobin 29.7, Mean Corpuscular Hemoglobin Concent 34.3, Mean Platelet Volume 10.4, Neutrophils (%) (Auto) 79.9, Lymphocytes (%) (Auto) 10.5, Monocytes (%) (Auto) 9.1, Eosinophils (%) (Auto) 0.0, Basophils (%) (Auto) 0.1, Neutrophils # (Auto) 13.79, Lymphocytes # (Auto) 1.81, Monocytes # (Auto) 1.58, Eosinophils # (Auto) 0.00, Basophils # (Auto) 0.02 04/08/17 00:19 Test 04/08/17 00:19 White Blood Count 17.27 K/uL (4.8-10.8) Red Blood Count 5.16 M/uL (4.2-5.4) Hemoglobin 15.3 g/dL (12.0-16.0) Hematocrit 44.6 % (37-47) Mean Corpuscular Volume 86.4 fL (80-100) Mean Corpuscular Hemoglobin 29.7 pg (25-34) Mean Corpuscular Hemoglobin Concent 34.3 g/dl (32-36) Platelet Count 194 K/uL (130-400) Mean Platelet Volume 10.4 fL (7.4-10.4) Neutrophils (%) (Auto) 79.9 % Lymphocytes (%) (Auto) 10.5 % Monocytes (%) (Auto) 9.1 % Eosinophils (%) (Auto) 0.0 % Basophils (%) (Auto) 0.1 % Neutrophils # (Auto) 13.79 K/uL (1.4-6.5) Lymphocytes # (Auto) 1.81 K/uL (1.2-3.4) Monocytes # (Auto) 1.58 K/uL (0.11-0.59) Eosinophils # (Auto) 0.00 K/uL (0-0.5) Basophils # (Auto) 0.02 K/uL (0-0.2) RDW Standard Deviation 41.4 fL (36.4-46.3) RDW Coefficient of Variation 13.0 % (11.5-14.5) Immature Granulocyte % (Auto) 0.4 % Immature Granulocyte # (Auto) 0.07 K/uL (0.00-0.02) Prothrombin Time 12.8 SECONDS (9.0-12.0) Prothromb Time International Ratio 1.2 (0.9-1.1) Anion Gap 12.0 mmol/L (3-11) Est Creatinine Clear Calc Drug Dose 34.5 ml/min Estimated GFR () 48.4 Estimated GFR (Non- 41.7 BUN/Creatinine Ratio 6.4 (10-20) Calcium Level 9.0 mg/dl (8.5-10.1) Magnesium Level 1.9 mg/dl (1.8-2.4) Total Bilirubin 2.0 mg/dl (0.2-1) Aspartate Amino Transf (AST/SGOT) 51 U/L (15-37) Alanine Aminotransferase (ALT/SGPT) 27 U/L (12-78) Alkaline Phosphatase 140 U/L (45-117) Troponin I 0.095 ng/ml (0-0.045) Total Protein 7.4 gm/dl (6.4-8.2) Albumin 3.5 gm/dl (3.4-5.0) Globulin 3.9 gm/dl (2.5-4.0) Albumin/Globulin Ratio 0.9 (0.9-2) Lipase 169 U/L (73-393) Laboratory results per my review. Medications Administered Medications (Trade) Dose Ordered Sig/Edi Route Start Time Stop Time Status Last Admin Dose Admin Metoprolol Tartrate (Lopressor Iv) 5 mg NOW STAT IV 04/08/17 00:08 04/08/17 00:10 DC 04/08/17 00:20 5 MG Morphine Sulfate (MoRPHine SULFATE INJ) 4 mg NOW STAT IV 04/08/17 00:08 04/08/17 00:11 DC 04/08/17 00:21 4 MG Morphine Sulfate (MoRPHine SULFATE INJ) 4 mg NOW STAT IV 04/08/17 01:30 04/08/17 01:32 DC 04/08/17 01:37 4 MG ECG Indication: altered mental status Rate (beats per minute): 138 Rhythm: atrial fibrillation (with RVR) Findings: ST depression (1, 2, AVL, V5, V6), other (Normal QRS. Prolonged QTC. Aberrant baseline. ) Comparison ECG Date: July 16, 2016 Change: no significant change ED Course 2345: The patient was taken directly to CT upon arrival. Her oxygen saturation levels began dropping into the high 70's and low 80's at this time. 2353: The patient was evaluated in room B1. A complete history and physical exam was performed. 0002: The patients oxygen saturation is 95% on NRB. 0005: The patients daughter confirmed that the patient is DNR/DNI. She states does not want aggressive intervention including tPA if she has an embolic stroke. She was suspicious over the last week or two that she may have been having TIA's due to changes in her responsiveness and personality. 0008: Ordered Morphine Sulfate 4 mg IV, Lopressor 5 mg IV. 0035: I reassessed the patient. Her blood pressure and heart rate have improved. She is moaning less, and her family believes she appears more comfortable. 0128: Upon reevaluation, the patient is moaning more. Her heart rate has begun increasing again. I discussed the findings and the treatment plan with the patient's family. They express agreement and understanding. I spoke with Dr. Yan of the [facility] Hospitalist Service. The patient will be evaluated for further management. 0130: Ordered Morphine Sulfate 4 mg IV, Lopressor 5 mg IV. Medical Decision Differential diagnosis: Etiologies such as metabolic, infection, hypoglycemia, electrolyte abnormalities , cardiac sources, intracerebral event, toxicologic, neurologic, as well as others were entertained. Pt with no improvement in mentation here. Oxygen sats holding in mid 90's on NRB at 15 lpm. Lengthy bedside discussion with family regarding code status, treatment options and risks vs benefits to each. VS and pt's apparent discomfort improved with IV metoprolol and morphine. Case discussed with medicine for evaluation. Doubt occult infectious etiology. Leukocytosis likely reactive. Increased troponin likely stress from tachycardia. Pt with hx of a.fib. Consults Time Called: 0119 Consulting Physician: Dr. Yan -[facility] Returned Call: 0125 I reviewed the patient's case with Dr. Yan. [facility] the patient for further management. Impression Primary Impression: CVA (cerebral vascular accident) Additional Impressions: Unresponsive Elevated troponin Hypertension Critical Care I have personally spent greater than 40 minutes of critical care time in the direct management of this patient. This includes bedside care, interpretation of diagnostic studies, and testing, discussion with consultants, patient, and family members, and other required patient management activities. This 40 minutes is in excess of all separately billable procedures. Scribe Attestation The scribe's documentation has been prepared under my direction and personally reviewed by me in its entirety. I confirm that the note above accurately reflects all work, treatment, procedures, and medical decision making performed by me. Departure Information Dispostion Being Evaluated By Hospitalist Referrals [facility] (PCP) Patient Instructions My [facility] Problem Qualifiers Primary Impression: CVA (cerebral vascular accident) CVA mechanism: embolism Precerebral and cerebral artery: unspecified precerebral artery Qualified Codes: I63.10 - Cerebral infarction due to embolism of unspecified precerebral artery Additional Impressions: Hypertension Hypertension type: essential hypertension Qualified Codes: I10 - Essential ( primary) hypertension
[2017-04-08 00:49] LABS: ALBUMIN 3.5 gm/dl (3.4-5.0); CREATININE 1.18 mg/dl (0.60-1.20); POTASSIUM 3.5 mmol/L (3.5-5.1)
[2017-04-08] MEDS ORDERED: AMLO-114 PO (01:01)
[2017-04-08] MEDS ORDERED: IPRASOL4 INH (01:04)
[2017-04-08] MEDS ORDERED: POLY150C4 PO (01:04)
[2017-04-08] MEDS ORDERED: APIX1TAB3 PO (01:04)
[2017-04-08] MEDS ORDERED: METO100T44 PO (01:05)
[2017-04-08] MEDS ORDERED: MULTTAB63 PO (01:10)
[2017-04-08] MEDS ORDERED: SIMV40TA2 PO (01:10)
[2017-04-08] MEDS ORDERED: SENN1TAB65 PO (01:10)
[2017-04-08] MEDS ORDERED: DOCU100T7 PO (01:10)
[2017-04-08 01:16] LABS: TOTAL PROTEIN 7.4 gm/dl (6.4-8.2)
[2017-04-08 01:59] VITALS: BP 171/139; PULSE 94; O2SAT 100
[2017-04-08] MEDS ORDERED: ONDANSETRON INJ 2 MG/ML 2 ML VIAL IV PRN (02:00)
[2017-04-08] MEDS ORDERED: ATROPINE SULFATE 1% OP SOLN 2 ML BTL SL PRN (02:00)
[2017-04-08] MEDS ORDERED: LORAZEPAM 2 MG/ML 1 ML VIAL IV PRN (02:00)
[2017-04-08] MEDS ORDERED: SCOPOLAMINE 1.5 MG TDSY TD SCH (03:00)
[2017-04-08] MEDS: MoRPHine SULF/NSS 250MG/250ML 250 ML IV SCH ×3 (03:00→03:45)
[2017-04-08 03:25] VITALS: Ht 157.5 cm; Wt 84.7 kg
[2017-04-08] MEDS ORDERED: NURSING VERBAL MED ORDER ONE ×4 (03:30→08:30)
--- NOTE | 2017-04-08 04:09 | History and Physical ---
History & Physical Date & Time of Service: Apr 08, 2017 at 03:57 Chief Complaint: Comfort Measures Only Status Primary Care Physician: Ellen Gilliam History of Present Illness Source: family, hospital records The patient is an 86-year-old female resident of [facility] with last known normal time at 8 PM this evening, who when next seen at 11 PM was found unresponsive by nursing staff. When EMS arrived on the scene, blood pressure was found to be 240/131, and oxygen saturation was in the 50s on room air. She was placed on 15 L of oxygen, with a subsequent pulse ox increasing to 90%. She was noted by EMS to have a left-sided facial droop, and a dilated right pupil. She had recently been switched from Coumadin to Eliquis a few days previously. Her daughter reports that the patient typically has some baseline confusion, but is oriented to person, sometimes location but not usually time. She also notes that the patient has been acting differently this week, and she was concerned that there may have been several TIAs. The patient herself is not able to contribute to her history of present illness due to unresponsive state. Past Medical/Surgical History Medical Problems: (1) CVA (cerebral vascular accident) Status: Resolved (2) Dehydration Status: Resolved (3) Fall Status: Resolved (4) Hyponatremia Status: Resolved (5) incidential over dose Status: Resolved (6) Left humeral fracture Status: Resolved (7) MRSA cellulitis Status: Resolved (8) Overdose Status: Resolved (9) TIA (transient ischemic attack) Status: Resolved Family History Omitted due to advanced age Social History Smoking Status: Never Smoker Smokeless Tobacco Use: No Alcohol Use: none Drug Use: none Marital Status: Housing status: assisted living Occupational Status: retired Immunizations History of Influenza Vaccine: Unknown History of Tetanus Vaccine?: Unknown History of Pneumococcal: Unknown History of Hepatitis B Vaccine: Unknown Multi-Drug Resistant Organisms History of MDRO: Yes Type of MDRO: MRSA Allergies Coded Allergies: Morphine (Verified Allergy, Unknown, 04/08/17) Sulfa Antibiotics (Verified Allergy, Unknown, UNKNOWN, 04/08/17) Home Medications Scheduled Amlodipine (Norvasc), 10 MG PO DAILY Apixaban (Eliquis), 5 MG PO BID Aspirin (Aspirin Ec), 81 MG PO Q2D Cholecalciferol (Vitamin D3), 2,000 UNITS PO DAILY Docusate Sodium (Stool Softener), 100 MG PO BID Metoprolol Succ (Toprol Xl) (Toprol-Xl ), 100 MG PO DAILY Multiple Vitamins W/ Minerals (Therems M), 1 TAB PO DAILY Pantoprazole (Protonix), 40 MG PO BID Polysaccharide Iron Complex (Ferrex 150), 150 MG PO QAM Potassium Chloride (K-Tabs), 20 MEQ PO QAM Ranitidine Hcl (Zantac), 150 MG PO QAM Sennosides-Docusate Sodium (Senna Plus), 1 TAB PO QAM Simvastatin (Zocor), 40 MG PO QPM Scheduled PRN Acetaminophen (Tylenol), 650 MG PO Q6 PRN for Pain or Fever Ipratropium-Albuterol (Duoneb), 1 TREATMENT INH Q6 PRN for Chest Pain Review of Systems Noted as above via a family members. Physical Exam Vital Signs Date Time Temp Pulse Resp B/P (MAP) Pulse Ox O2 Delivery O2 Flow Rate FiO2 04/08/17 03:25 Non-Rebreather 15.0 04/08/17 01:59 94 18 171/139 100 Non-Rebreather 15.0 04/08/17 00:44 94 18 200/114 100 Non-Rebreather 15.0 04/08/17 00:29 114 18 181/118 100 Non-Rebreather 15.0 04/08/17 00:20 147 235/146 04/08/17 00:15 98 Non-Rebreather 15.0 04/08/17 00:08 36.7 136 26 235/146 100 Non-Rebreather 15.0 04/07/17 23:58 137 The patient is unresponsive, lying in bed, making loud snoring-type noises, in mild distress. HEENT--right pupil dilated, mucous membranes and oropharynx dry. Neck--supple, no JVD or bruits, thyroid normal, trachea midline, no adenopathy. Heart--normal S1 and S2, no extra beats, no murmurs, rubs or gallops. Lungs--clear bilaterally, no respiratory distress and no accessory muscle use. Abdomen--normal bowel sounds and soft, nontender and nondistended, no hernias or masses. Extremities--no cyanosis, clubbing or edema. Dermatologic--extremities are mildly cool Neurologic--afferent pupillary nerve defect on the right Rheumatologic--deferred Psychiatric--unresponsive Diagnostics Laboratory Results Results Past 24 Hours Test 04/08/17 00:19 Range/Units White Blood Count 17.27 4.8-10.8 K/uL Red Blood Count 5.16 4.2-5.4 M/uL Hemoglobin 15.3 12.0-16.0 g/dL Hematocrit 44.6 37-47 % Mean Corpuscular Volume 86.4 80-100 fL Mean Corpuscular Hemoglobin 29.7 25-34 pg Mean Corpuscular Hemoglobin Concent 34.3 32-36 g/dl Platelet Count 194 130-400 K/uL Mean Platelet Volume 10.4 7.4-10.4 fL Neutrophils (%) (Auto) 79.9 % Lymphocytes (%) (Auto) 10.5 % Monocytes (%) (Auto) 9.1 % Eosinophils (%) (Auto) 0.0 % Basophils (%) (Auto) 0.1 % Neutrophils # (Auto) 13.79 1.4-6.5 K/uL Lymphocytes # (Auto) 1.81 1.2-3.4 K/uL Monocytes # (Auto) 1.58 0.11-0.59 K/uL Eosinophils # (Auto) 0.00 0-0.5 K/uL Basophils # (Auto) 0.02 0-0.2 K/uL RDW Standard Deviation 41.4 36.4-46.3 fL RDW Coefficient of Variation 13.0 11.5-14.5 % Immature Granulocyte % (Auto) 0.4 % Immature Granulocyte # (Auto) 0.07 0.00-0.02 K/uL Prothrombin Time 12.8 9.0-12.0 SECONDS Prothromb Time International Ratio 1.2 0.9-1.1 Sodium Level 130 136-145 mmol/L Potassium Level 3.5 3.5-5.1 mmol/L Chloride Level 96 98-107 mmol/L Carbon Dioxide Level 22 21-32 mmol/L Anion Gap 12.0 3-11 mmol/L Blood Urea Nitrogen 8 7-18 mg/dl Creatinine 1.18 0.60-1.20 mg/dl Est Creatinine Clear Calc Drug Dose 34.5 ml/min Estimated GFR () 48.4 Estimated GFR (Non- 41.7 BUN/Creatinine Ratio 6.4 10-20 Random Glucose 212 70-99 mg/dl Calcium Level 9.0 8.5-10.1 mg/dl Magnesium Level 1.9 1.8-2.4 mg/dl Total Bilirubin 2.0 0.2-1 mg/dl Aspartate Amino Transf (AST/SGOT) 51 15-37 U/L Alanine Aminotransferase (ALT/SGPT) 27 12-78 U/L Alkaline Phosphatase 140 45-117 U/L Troponin I 0.095 0-0.045 ng/ml Total Protein 7.4 6.4-8.2 gm/dl Albumin 3.5 3.4-5.0 gm/dl Globulin 3.9 2.5-4.0 gm/dl Albumin/Globulin Ratio 0.9 0.9-2 Lipase 169 73-393 U/L Impression Assessment and Plan Admission for comfort measures-- CT of the head shows old CVAs, with no acute infarcts. The patient has had an obvious significant neurologic insult. Discussion with all 5 family members present in the emergency department room are in agreement for comfort measures. Admit to medical floor. Morphine drip with titration parameters Transderm Scopolamine patch Ativan 1 mg IV every hour when necessary Atropine drops 1 drop on tongue every 30 minutes when necessary secretions Zofran 4 mg IV every 6 hours when necessary. Continue supplemental oxygen by mask. All oral medications will be held. Level of Care Med/Surg Advanced Directives Existing Living Will: No Existing Power of Vice President Of Software Development: No Resuscitation Status DO NOT RESUSCITATE VTE Prophylaxis VTE Risk Assessment Done? Y/N: Yes Risk Level: High Given or contraindicated: Treatment not indicated Social Service Consult Lives in [facility]
--- NOTE | 2017-04-08 05:26 | DIAGNOSTIC IMAGING REPORT ---
HEAD WITHOUT CONTRAST (CT) CT DOSE: 614.27 mGy.cm HISTORY: Mental status change left facial droop, unresponsive TECHNIQUE: Multiaxial CT images of the head were performed without the use of intravenous contrast. A dose lowering technique was utilized adhering to the principles of ALARA. Comparison: 08/14/2014 Findings: Moderate mucosal thickening of the maxillary sinuses. Calvarium is intact. Evidence for high density middle cerebral arteries bilaterally. This is a interval change compared to the prior study. Effacement of sulci of the right middle cerebral arterial distribution. This is only a clinical increase in the left. No evidence for acute intracranial hemorrhage. Subtle high density focus medially lateral to the anterior horn right lateral ventricle potentially is technical. Impression: Probable acute infarcts of the right to lesser extent left middle cerebral arterial distribution. No acute intracranial hemorrhage. Several small old infarcts which have been described previously. The above report was generated using voice recognition software. It may contain grammatical, syntax or spelling errors. Electronically signed by: Robert Grlulon M.D. 04/08/2017 5:25 AM Dictated Date/Time: 04/08/2017 5:22 AM
--- NOTE | 2017-04-08 05:27 | DIAGNOSTIC IMAGING REPORT ---
CHEST ONE VIEW PORTABLE CLINICAL HISTORY: hypoxia mental status change COMPARISON STUDY: 07/16/2016 FINDINGS: Mild stable cardiomegaly. Slight chronic blunting left lateral costophrenic angle. Lungs otherwise appear clear. Several old right-sided rib fractures. IMPRESSION: Chronic change. No acute process. The above report was generated using voice recognition software. It may contain grammatical, syntax or spelling errors. Electronically signed by: Robert Grullon M.D. 04/08/2017 5:26 AM Dictated Date/Time: 04/08/2017 5:25 AM
[2017-04-08] MEDS ORDERED: CHECK SCOPOLAMINE PATCH PLACEMENT SCH (08:00)
[2017-04-08] MEDS ORDERED: ATROPINE SULFATE 1% OP SOLN 5 ML BTL SL PRN (08:30)
--- NOTE | 2017-04-08 10:11 | Death Pronouncement Note ---
Pronouncement Note Date & Time of Apr 08, 2017. 0959 Pronouncement At time of pronouncement the patients pupils were fixed and dilated, there was no spontaneous respiratory effort, no palpable pulse, no audible heart tones, and no response to pain or voice.
--- NOTE | 2017-04-08 12:53 | Death Summary ---
Summary of Admission Date Apr 08, 2017 at 01:49 Date & Time of Apr 08, 2017. 0959 Cause of Large ischemic stroke Secondary Diagnoses HTN Atherosclerosis Hospital Course 86 yo female admitted with mental status changes and clear neurological deficits , hypertensive emergency, CT head with evidence of prior strokes - Large ischemic stroke: family decided on comfort measures only, patient was in respiratory distress, requiring NRB placed on medical floor, morphine, scopolamine, atropine patient passed peacefully with family at the bedside
== END 2017-04-08 12:15 | disposition expired | DRG 66 ==
LOC: EDBD 23:38 → C.EDB 23:40 → C.4E 04-08 01:49 → ENRESERV 04-08 02:06
PROVIDERS: ADMIT Hospitalist; ATTEND Internal Medicine
DX: I63.9 Cerebral infarction, unspecified (principal); I48.91 Unspecified atrial fibrillation; Z66 Do not resuscitate; R29.810 Facial weakness; E78.5 Hyperlipidemia, unspecified; I10 Essential (primary) hypertension; Z86.14 Personal history of Methicillin resistant Staphylococcus aureus infection; Z86.73 Personal history of transient ischemic attack (TIA), and cerebral infarction without residual deficits; Z51.5 Encounter for palliative care; Z79.82 Long term (current) use of aspirin; Z88.2 Allergy status to sulfonamides; Z79.01 Long term (current) use of anticoagulants; Z88.1 Allergy status to other antibiotic agents